=== PATIENT | female | born 1950 | race Caucasian/White ===

== ENCOUNTER 2023-08-18 11:57 | Inpatient (IN) | payer MEDICARE, OTHER, SELFPAY ==
--- NOTE | ~2023-08-18 | US_ITS ---
EXAMINATION: US EXTRACRANIAL CAROTID DUPLEX, BILATERAL CLINICAL INFORMATION: TIA. COMPARISON: None available. TECHNIQUE: Real-time ultrasound and Doppler techniques (integrating B-mode 2-D vascular images, Doppler spectral analysis and color-flow Doppler imaging) were utilized to interrogate the extracranial carotid arteries, the vertebral arteries and proximal subclavian arteries bilaterally. The degree of stenosis is determined by criteria similar to NASCET. FINDINGS: Right Side: Limited visualization of the mid and distal cervical internal carotid artery due to overlying venous catheter bandage. 1. There is mild atherosclerotic plaque seen in the bifurcation/proximal ICA region. 2. The common carotid artery PSV proximally is 106 cm/s and distally 92 cm/s. 3. The proximal internal carotid artery velocities are 136 cm/s systolic and 24 cm/s diastolic. 4. The proximal external carotid artery PSV is 189 cm/s. 5. The vertebral artery shows antegrade flow. 6. The subclavian artery waveforms are triphasic. Left Side: 1. There is moderate atherosclerotic plaque seen in the bifurcation/proximal ICA region. 2. The common carotid artery PSV proximally is 26 cm/s and distally 20 cm/s. Abnormal waveform consistent with distal occlusion. 3. The proximal internal carotid artery is occluded. 4. The proximal external carotid artery is not visualized. 5. The vertebral artery is not visualized. 6. The subclavian artery waveforms are biphasic. US/US carotid duplex BI IMPRESSION: 1. RIGHT: Moderate, hemodynamically significant stenosis of the proximal right internal carotid artery corresponding to a 50-79% stenosis by velocity criteria. 2. LEFT: The cervical internal carotid artery appears occluded. The vertebral artery is is not visualized and could be occluded.
--- NOTE | ~2023-08-18 | MR_ITS ---
MRI OF THE BRAIN WITHOUT IV CONTRAST INDICATION: Left-sided facial droop. COMPARISON: Head CT 08/19/2023. TECHNIQUE: Multiplanar multisequence MR imaging of the brain was obtained without IV contrast. FINDINGS: There is no hydrocephalus, extra-axial surface collection, or herniation. Chronic encephalomalacia and gliosis within the posterior aspect of the right cerebral hemisphere. There is background chronic microangiopathy. Absent left internal carotid artery flow void in keeping with the left internal carotid artery occlusion discussed on the 08/19/2023 carotid ultrasound. There is no acute infarct on diffusion-weighted imaging. There is no intracranial hemorrhage on the gradient recalled echo acquisition. Punctate foci of chronic hemosiderin staining within the frontal lobes. The midline structures are normal. The cerebellar tonsils are normally positioned. The cerebellum and brainstem are normal. The craniocervical junction is normal. Osseous marrow signal intensity is homogenous. Probable high right parietal scalp hematoma that can be clinically correlated. MR/MR head/brain wo con IMPRESSION: - There are no acute intracranial findings. No acute infarcts. - Absent left internal carotid artery flow void in keeping with the left internal carotid artery occlusion discussed on the 08/19/2023 carotid ultrasound. - Chronic encephalomalacia and gliosis within the posterior aspect of the right cerebral hemisphere. There is background chronic microangiopathy. - Probable high right parietal scalp hematoma that can be clinically correlated.
--- NOTE | ~2023-08-18 | CT_ITS ---
EXAMINATION: CT HEAD WITHOUT CONTRAST (STROKE PROTOCOL) CLINICAL INFORMATION: Stroke protocol. Left facial droop COMPARISON: None available. TECHNIQUE: Contiguous axial imaging was performed from the skull base to vertex without intravenous administration of contrast. This CT examination was performed using dose optimization techniques as appropriate, variously including the following: *Automated exposure control *Adjustment of mA and/or kV according to patient size (this includes techniques or standardized protocols for targeted exams where dose is matched to indication/reason for exam; i.e. extremities or head) *Use of iterative reconstruction technique DLP: 788 mGy-cm FINDINGS: Large area of encephalomalacia in the right frontal lobe extending towards its posterior and superior aspect likely due to an old stroke. There is prominence to the sulci and ventricles consistent with involutional change and deep white matter gliosis is observed. Calvarium intact. No intra or extra-axial fluid collection, or hemorrhage, mass, or mass effect. Small calcific densities or osteomas of bone off the outer table anterior vertex incidentally noted. CT/CT head for stroke IMPRESSION: Sequela of an old right-sided infarct. No evidence for an acute hemorrhage or stroke at this time. Results to be telephoned into the ER.
--- NOTE | ~2023-08-18 | CT_ITS ---
EXAMINATION: CT ABDOMEN AND PELVIS WITHOUT CONTRAST CLINICAL INFORMATION: Abdominal pain COMPARISON: None available. TECHNIQUE: Multidetector volumetric imaging was performed from the superior aspect of the liver through the pubic symphysis. Sagittal and coronal reformatted images were obtained on the technologist's workstation. This CT examination was performed using dose optimization techniques as appropriate, variously including the following: *Automated exposure control *Adjustment of mA and/or kV according to patient size (this includes techniques or standardized protocols for targeted exams where dose is matched to indication/reason for exam; i.e. extremities or head) *Use of iterative reconstruction technique DLP: 345 mGy-cm FINDINGS: LUNG BASES: The visualized lung bases are unremarkable. Heart size is enlarged. No pericardial effusion. Coronary calcifications are present. LIVER, GALLBLADDER, AND BILIARY TREE: The liver is normal in size, shape, and attenuation. No focal hepatic lesion or biliary ductal dilatation is present. Status post cholecystectomy PANCREAS: Unremarkable. SPLEEN: Spleens enlarged measuring 14.5 cm AP. ADRENAL GLANDS: Unremarkable. KIDNEYS AND URETERS: Kidneys are atrophic. Exophytic cyst lower pole right kidney measuring 4.7 cm. Hyperdense renal cyst lower pole right kidney measuring 6 mm. Exophytic cyst upper pole right kidney measuring 4 cm. Exophytic cyst upper pole left kidney measuring 4.6 cm. No renal calculus. No hydronephrosis. No hydroureter. BLADDER: Unremarkable. GASTROINTESTINAL TRACT: There are numerous diverticula of the sigmoid colon. There is focal bowel wall thickening of the mid distal sigmoid colon with surrounding edema in the colonic fat. Findings consistent with diverticulitis. No perforation or abscess. No bowel obstruction. Moderate volume of stool in the colon. The appendix is nonvisualized . The small bowel loops are unremarkable. The stomach is normal. There is no hiatal hernia. ABDOMINAL WALL: Surgical mesh at the anterior abdominal wall. No evidence of recurrent hernia. LYMPH NODES: Normal. VASCULAR: There are extensive vascular calcifications throughout the abdomen and pelvis. There is an aneurysm of the descending abdominal aorta. This extends from the renal vascular pedicle to the aortic bifurcation. This has a transverse dimension of 4.9 cm. Eccentric calcification along the left side of the aneurysm likely from chronic dissection. No evidence of retroperitoneal hematoma. There is a vascular stent in the left common iliac artery. Right iliac arteries appear stenotic and densely calcified. There is a graft from the left femoral artery to the right femoral artery. PELVIC VISCERA: Unremarkable. OSSEOUS STRUCTURES: Status post orthopedic screw and intramedullary juan in the right proximal femur. Multilevel degenerative spondylosis spine. Levoscoliosis of mid lumbar spine. CT/CT abdomen pelvis wo IV con IMPRESSION: 1. Diverticulitis of the sigmoid colon. 2. 4.9 cm abdominal aortic aneurysm. Based on published guidelines in J Am Parth Radiol 2013; 10(10):789-794 and J Vasc Surg. 2018; 67:2-77, the recommendation for an abdominal aortic aneurysm with diameter 4.5-5.4 cm is vascular consultation and subsequent follow-up every 6 months. 3. Status post cholecystectomy. 4. Surgical mesh anterior abdominal wall. No recurrent hernia. 5. Atrophic kidneys. Bilateral renal cysts. No follow-up imaging is recommended for simple renal cyst. 6. Splenomegaly. Fleischner guidelines were followed.
--- NOTE | ~2023-08-18 | XR_ITS ---
EXAMINATION: XR CHEST CLINICAL INFORMATION: Pre-MRI, rule out implant COMPARISON: None available. TECHNIQUE: AP upright portable view of the chest was obtained. 12:15 PM FINDINGS: The heart is enlarged. The patient is status post median sternotomy with valve replacement. There is marked calcification of the thoracic aorta indicative of atherosclerotic disease. There is slight streaky density in the retrocardiac portion of the left lung which likely represents atelectasis, less compressed likely pneumonia. Increased interstitial markings. No gross pleural effusion. Multiple surgical clips are seen in the right axilla. 3 metallic anchors are seen in the right humeral head. There is marked thoracolumbar scoliosis. Arterial mesh graft is seen in the left upper quadrant. Surgical clips in the right upper quadrant are consistent with prior cholecystectomy. XR/XR chest 1V IMPRESSION: 1. Cardiomegaly. 2. Status post median sternotomy with valve replacement. 3. Left basilar atelectasis, less compressed likely pneumonia.
--- NOTE | ~2023-08-18 | CT_ITS ---
EXAMINATION: CT HEAD WITHOUT CONTRAST CLINICAL INFORMATION: Worsening decreased level of consciousness. COMPARISON: MRI of August 21, [address] of August 19, 2023. TECHNIQUE: Contiguous axial imaging was performed from the skull base to vertex without intravenous administration of contrast. This CT examination was performed using dose optimization techniques as appropriate, variously including the following: *Automated exposure control *Adjustment of mA and/or kV according to patient size (this includes techniques or standardized protocols for targeted exams where dose is matched to indication/reason for exam; i.e. extremities or head) *Use of iterative reconstruction technique DLP: 720 mGy-cm FINDINGS: No acute intracranial hemorrhage is identified. There is some prominence of ventricles, sulci, and cisterns consistent with atrophic change. No significant abnormal extra-axial fluid collection is seen. No significant mass effect is seen. There is again noted to be a large region of encephalomalacia involving the right frontal and anterior aspect of the parietal lobe from previous ischemic event. No evidence of acute infarct is appreciated on this noncontrasted CT scan. There is stable mild periventricular white matter low density consistent with microangiopathy. There is soft tissue prominence about the right frontal region consistent with scalp hematoma. Visualized paranasal sinuses and mastoid air cells unremarkable. CT/CT head/brain wo IV con IMPRESSION: No acute intracranial pathology. 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
[2023-08-18 12:12] VITALS: BP 130/72; PULSE 62; O2SAT 95
[2023-08-18 12:36] VITALS: BP 127/67; PULSE 67; RESP 16; TEMP 36.3; O2SAT 98; BMI 19.5
--- NOTE | 2023-08-18 13:46 | ECG_ITS ---
Test Reason : CHEST PAIN Blood Pressure : / mmHG Vent. Rate : 068 BPM Atrial Rate : 156 BPM P-R Int : 000 ms QRS Dur : 110 ms QT Int : 462 ms P-R-T Axes : 000 -18 179 degrees QTc Int : 491 ms Atrial fibrillation Left ventricular hypertrophy with repolarization abnormality ( [place] product , [place]hilt-[place] ) Cannot rule out Septal infarct , age undetermined Abnormal ECG No previous ECGs available Referred By: Melo Jefferson Electronically Signed By:VIOLET CARDOSO
--- NOTE | 2023-08-18 13:46 | ED.GENADULT ---
HPI - General Adult General Chief complaint: Abdominal Pain Stated complaint: DIARRHEA,MISSED DIALYSIS TODAY PER EMS Time Seen by Provider: 08/18/23 13:38 Source: patient Mode of arrival: ambulatory Limitations: no limitations History of Present Illness HPI narrative: THIS IS 72 YEARS OLD FEMALE WITH CHRONIC RENAL FAILURE ON HEMODIALYSIS Friday PRESENTED TO THE EMERGENCY DEPARTMENT WITH A CHIEF COMPLAINT OF DIARRHEA SINCE FRIDAY. DENIES ANY FEVER CHILLS VOMITING. Onset (ago): day(s) (2) Radiation: non-radiation Severity: moderate Pain Consistency: constant Relieving factors: none Exacerbating factors: none Related Data Allergies Allergy/AdvReac Type Severity Reaction Status Date / Time No Known Allergies Allergy Verified 08/18/23 12:38 Review of Systems Constitutional: Constitutional: Reports no additional constitutional complaints ENT: Reports system reviewed and no additional complaints, except as documented Musculoskeletal: Musculoskeletal: Reports no additional musculoskeletal complaints PMFSH Past Medical History PMFSH Narrative: RENAL FAILURE ON HEMODIALYSIS Social History Social History Smoked in Last 30 Days: No Use of substances other than those prescribed or required for medical reasons: No Advance Directives: No Advance Directives Information Provided: Yes Do you have a plan to hurt others: No Plan Physical Exam ED Vital Signs: Vital Signs - 24 hr 08/18/23 12:36 08/18/23 15:15 Temperature 97.3 F 96.8 F Pulse Rate 67 96 Respiratory Rate 16 14 Blood Pressure 127/67 149/68 H Pulse Oximetry 98 98 Oxygen Delivery Method Room Air Room Air BMI result Body Mass Index 19.5 Const General: cooperative Nutritional Appearance: average body habitus Orientation/consciousness: oriented to time Limitations: no limitations HENMT Head: Yes normal to inspection General nose exam: Normal external nose present Face and sinus: Yes normal facial exam Mouth: Normal oral and palatal mucosa present Neck Neck: Yes normal visual inspection and Yes full ROM Chest Chest palpation & inspection: normal inspection of the chest Resp Effort & Inspection: normal respiratory effort Auscultation: clear to auscultation bilaterally Cardio Jugular venous distension: no JVD Rate: regular rate Rhythm: regular rhythm GI Inspection: Yes normal to inspection Palpation (GI): Soft to palpation Percussion: No normal to percussion Auscultation: normal bowel sounds Skin General skin exam: no rashes or lesions noted Rashes: no rashes Neuro General: oriented to time Course Reevaluation(s) Reevaluation #1: SPOKE WITH RENAL dR ROQUE Time: 16:09 Reevaluation #2: SPOKE WITH dR HUMPHREY VASCULAR REGARDING AAA Medications Administered Discontinued Medications Generic Name Dose Route Start Last Admin Trade Name Freq PRN Reason Stop Dose Admin Sodium Chloride 1,000 mls @ 500 mls/hr 08/18/23 13:45 08/18/23 14:47 Ns IVCONT 08/18/23 15:44 500 mls/hr .Q2H TROY Administration Procedures EJ/Peripheral Line Neck R: Time Out Performed: Yes Skin Cleansed in Sterile Fashion: Yes Size (gauge): 20 IV Secured and Dressing Applied: Yes Patient Tolerated Procedure: well and no complications Additional Comments: 20 g CATHETER WAS INSERTED IN THE RT EJ LABS OBTAINED GOOD FLOW GOOD FLASH Medical Decision Making Medical Decision Making MDM Narrative: PATIENT PRESENTED TO THE EMERGENCY DEPARTMENT WITH A CHIEF COMPLAINT OF DIARRHEA SHE MISSED THE DIALYSIS, WE GET BLOOD WORK ADMINISTER Differential Diagnosis Differential Diagnoses: The differential diagnosis associated with the presentation includes VIRAL GASTROENTERITIS/COLITIS Admission/Observation Consideration of admission/observation: Escalation of care including admission/observation considered Consult Healthcare Provider Management of the patient was discussed with: Consulting Services Manager RENAL dR ROQUE Lab Data [facility] Lab Attestation statement: I reviewed the patient's lab results. 08/18/23 14:24 08/18/23 14:24 Labs: Lab Results 08/18/23 08/18/23 Range/Units 14:24 14:45 WBC 11.8 H (4.8-10.8) X10*3/uL RBC 3.17 L (4.20-5.50) X10*6/uL Hgb 11.7 L (12.0-16.0) g/dl Hct 36.2 L (37.0-47.0) % MCV 114.2 H (80.0-98.0) fL MCH 36.9 H (27.0-33.0) pg MCHC 32.3 (31.0-35.0) g/dl RDW 15.9 (11.0-16.0) % Plt Count 191 (160-400) X10*3/uL MPV 10.8 (9.4-12.3) fL Immature Gran % (Auto) 1.2 H (0.0-0.4) % Neut % (Auto) 86.7 H (45-73) % Lymph % (Auto) 6.4 L (20-40) % [place] % (Auto) 4.3 (2-11) % Eos % (Auto) 1.2 (0-4) % Baso % (Auto) 0.2 (0-2) % Lymph # (Auto) 0.8 L (1.2-4.9) X10*3/uL [place] # (Auto) 0.5 (0.1-1.2) X10*3/uL Eos # (Auto) 0.1 (0.0-0.4) X10*3/uL Baso # (Auto) 0.0 (0.0-0.2) X10*3/uL Abs Immat Gran (auto) 0.14 H (0.00-0.03) X10*3/uL Absolute Neuts (auto) 10.3 H (2.0-8.3) x10*3/uL Absolute Nucleated RBC 0.000 (0.0-0.012) X10*3/uL Nucleated RBC % (auto) 0.0 (0.0-0.2) /100WBC Sodium 138 (135-145) mmol/L Potassium 4.3 (3.3-5.1) mmol/L Chloride 102 (96-108) mmol/L Carbon Dioxide 21 L (22-29) mmol/L Anion Gap 19 (12-20) BUN 70 H (9-16) mg/dL Creatinine 5.52 H* (0.5-1.4) mg/dL Estim Creat Clear Calc 7.3 Estimated GFR 8 Random Glucose 91 (60-115) mg/dL Calcium 8.0 L (8.4-10.2) mg/dL Total Bilirubin 0.6 (0.0-1.0) mg/dL AST 15 (5-31) U/L ALT 9 (0-31) U/L Alkaline Phosphatase 96 (39-117) U/L Total Protein 6.5 (6.5-8.0) g/dL Albumin 3.1 L (3.5-5.0) g/dL C. difficile Tox B Gene POSITIVE A* (Negative) Independent Interpretation I performed an independent interpretation of an: EKG Interpretation: EKG SHOWS AFIB WITH SLOW VENTRICULAR RESPONSE 68, I PERSONALLY REVIEWED THE CT SCAN INTERPRETED AAA Radiology Impression Discussion of test interpretation with radiology: I have reviewed the radiologist's reading. Discharge Plan Discharge Clinical Impression: Atrial fibrillation with slow ventricular response, C. difficile colitis Diarrhea Qualifiers: Diarrhea type: unspecified type Qualified Code(s): R19.7 - Diarrhea, unspecified Renal failure, chronic Qualifiers: Chronic kidney disease stage: stage 5 Qualified Code(s): N18.5 - Chronic kidney disease, stage 5 AAA (abdominal aortic aneurysm) without rupture Qualifiers: Abdominal aorta location: unspecified Qualified Code(s): I71.40 - Abdominal aortic aneurysm, without rupture, unspecified Patient Disposition: Admitted As Inpatient Print Language: Slovenian
--- NOTE | 2023-08-18 13:57 | PC.NURSE ---
Patient's daughter Laney phone # [phone], to call with updates
[2023-08-18 14:33] LABS: Basophils Percent Auto 0.2 % (0-2); Eosinophils Absolute Auto 0.1 X10*3/uL (0.0-0.4); Eosinophils Percent Auto 1.2 % (0-4); Hematocrit 36.2 % (37.0-47.0); Hemoglobin 11.7 g/dl (12.0-16.0); Imm Gran Abs Auto 0.14 X10*3/uL (0.00-0.03); Imm Gran Pct Auto 1.2 % (0.0-0.4); Lymphocytes Absolute Auto 0.8 X10*3/uL (1.2-4.9); Lymphocytes Percent Auto 6.4 % (20-40); MANUAL DIFF FLAG NO; Mean Corpuscular HGB Conc 32.3 g/dl (31.0-35.0); Mean Corpuscular Hemoglobin 36.9 pg (27.0-33.0); Mean Platelet Volume 10.8 fL (9.4-12.3); Monocytes Absolute Auto 0.5 X10*3/uL (0.1-1.2); Monocytes Percent Auto 4.3 % (2-11); Neutrophils Absolute Auto 10.3 x10*3/uL (2.0-8.3); Neutrophils Percent Auto 86.7 % (45-73); Platelet Count 191 X10*3/uL (160-400); Red Blood Count 3.17 X10*6/uL (4.20-5.50); Red Cell Distribution Width 15.9 % (11.0-16.0); White Blood Count 11.8 X10*3/uL (4.8-10.8)
[2023-08-18 14:34] LABS: Mean Corpuscular Volume 114.2 fL (80.0-98.0)
[2023-08-18] MEDS: 0.9 % Sodium Chloride 1,000 ML 500 ML IVCONT (14:47)
[2023-08-18 14:56] LABS: Alanine Aminotransferase 9 U/L (0-31); Albumin Level 3.1 g/dL (3.5-5.0); Alkaline Phosphatase 96 U/L (39-117); Anion Gap 19 (12-20); Aspartate Amino Transferase 15 U/L (5-31); Bilirubin Total 0.6 mg/dL (0.0-1.0); Blood Urea Nitrogen 70 mg/dL (9-16); Carbon Dioxide 21 mmol/L (22-29); Chloride 102 mmol/L (96-108); Creatinine Clr Calc Pharmacy 7.3; Estimated Glomerular Filt Rate 8; Glucose Random 91 mg/dL (60-115); Potassium 4.3 mmol/L (3.3-5.1); Sodium 138 mmol/L (135-145); Total Protein 6.5 g/dL (6.5-8.0)
[2023-08-18 15:15] VITALS: BP 149/68; PULSE 96; RESP 14; TEMP 36; O2SAT 98
[2023-08-18 15:55] LABS: CDiff Gene PCR POSITIVE (Negative)
[2023-08-18 16:30] LABS: CDiff Toxin Positive (Negative)
[2023-08-18 16:31] LABS: CDIFF Internal ctrl Dots and bkg OK (V)
--- NOTE | 2023-08-18 16:57 | P.HPHOSP_ITS ---
History of Present Illness Date of Service: 08/18/23 Attending physician on admission: Jayshree Chawla Chief Complaint: diarrhea 72-year-old female with history of hypertension, ESRD on dialysis MWF, anxiety, aortic stenosis, paroxysmal atrial fibrillation anticoagulated with Eliquis, mesenteric artery bypass graft, PE on Eliquis, history of TIA and recent history of C diff 02/2023 with admission to [facility] from 05/26-06/19 for metabolic encephalopathy found to have MRSA bacteremia treated with rifampin which was completed on 07/06 presented to the ED earlier today for evaluation of copious diarrhea ongoing for 3 days. She states that she has been incontinent of very foul smelling diarrhea with associated abdominal pain and nausea. No fevers or chills. No vomiting, melena, hematochezia, urinary symptoms, shortness of breath, lightheadedness, chest pain. She states she was feeling so unwell she missed dialysis this morning. Follows with Dr. Duffy in Nephrology. On arrival, vital signs stable. There is a mild leukocytosis of 11.8. Stable macrocytic anemia with H/H 11.7/36.2%. Renal function 5.52, BUN 70, baseline creatinine around 3.5. Electrolyte levels normal except for CO2 21. GI panel pending but is positive for C diff gene and toxin . CT abdomen/pelvis shows diverticulitis, 4.9 cm abdominal aortic aneurysm among other nonacute findings. In the ED, has been given IV NS. Review of Systems 2 Review of Systems: General: No fevers, malaise, unintentional weight loss HEENT: No blurred vision, diplopia. No sore throat, nasal congestion, rhinorrhea, sinus pain, ear pain Cardiovascular: No chest pain, palpitations, or leg edema Respiratory: No shortness of breath, wheezing, cough GI: +abd pain, +diarrhea, +nausea. No vomiting, constipation, melena, hematochezia : No dysuria, hematuria, increased urinary frequency, decreased urinary output MSK: No myalgia, back pain Neuro: No headaches, weakness, paresthesias Skin: No rashes or lesions [facility] Medical History CVA (cerebral vascular accident) Aortic stenosis History of Clostridioides difficile colitis Coronary artery disease Abdominal aortic aneurysm Peripheral vascular disease ESRD on dialysis Anxiety Atrial fibrillation MRSA bacteremia Surgical History History of aortic valve replacement with bioprosthetic valve Social History Smoked in Last 30 Days: No Use of substances other than those prescribed or required for medical reasons: No Advance Directives: No Advance Directives Information Provided: Yes Do you have a plan to hurt others: No Plan Meds Allergies Allergy/AdvReac Type Severity Reaction Status Date / Time No Known Allergies Allergy Verified 08/18/23 12:38 Active Medications: Current Medications Acetaminophen (Acetaminophen 325 Mg Tablet) 650 mg PO Q6H PRN PRN Reason: Pain, Mild (Pain Scale 1-3) Sodium Chloride (Ns) 1,000 mls @ 75 mls/hr IVCONT .[id number] TROY Ondansetron HCl (Ondansetron Hcl 4 Mg/2 Ml Vial) 4 mg IVPUSH Q8H PRN PRN Reason: Nausea and Vomiting Senna (Sennosides 8.6 Mg Tablet) 17.2 mg PO BEDTIME PRN PRN Reason: Constipation Sodium Chloride (0.9 % Sodium Chloride Flush 3 Ml Syringe) 3 ml IVFLUSH QSHIFT TROY Physical Exam 2 Vital Signs and Narrative: Vital Signs: Last Vital Signs Temp 96.8 F 08/18/23 15:15 Pulse 96 08/18/23 15:15 Resp 14 08/18/23 15:15 BP 149/68 H 08/18/23 15:15 Pulse Ox 98 08/18/23 15:15 O2 Del Method Room Air 08/18/23 15:15 BMI result Body Mass Index 19.5 Constitutional - Awake and Alert, weak appearing, No apparent distress Eyes - PERRLA, EOMI Cardiovascular - S1S2, RRR, No edema Respiratory - Normal lung expansion, Normal respiratory effort, No respiratory distress, CTA bilaterally Gastrointestinal - left lower quadrant tenderness to palpation, ND; +BS; No rebound or guarding Extremities - no calf tenderness bilaterally, no swelling Skin - Warm/Dry Neurological - Alert & oriented x3, CN II-XII in tact, 5/5 strength BUE and BLE Psychological - Appropriate affect Results Labs 08/18/23 14:24 08/18/23 14:24 Labs: Laboratory Results - last 24 hr 08/18/23 08/18/23 14:24 14:45 MCV 114.2 H MCH 36.9 H MCHC 32.3 RDW 15.9 Plt Count 191 MPV 10.8 Immature Gran % (Auto) 1.2 H Neut % (Auto) 86.7 H Lymph % (Auto) 6.4 L [place] % (Auto) 4.3 Eos % (Auto) 1.2 Baso % (Auto) 0.2 Lymph # (Auto) 0.8 L [place] # (Auto) 0.5 Eos # (Auto) 0.1 Baso # (Auto) 0.0 Abs Immat Gran (auto) 0.14 H Absolute Neuts (auto) 10.3 H Absolute Nucleated RBC 0.000 Nucleated RBC % (auto) 0.0 Anion Gap 19 Estim Creat Clear Calc 7.3 Estimated GFR 8 Random Glucose 91 Calcium 8.0 L Total Bilirubin 0.6 AST 15 ALT 9 Alkaline Phosphatase 96 Total Protein 6.5 Albumin 3.1 L C. difficile Tox B Gene POSITIVE A* C. difficile Toxin A&B Positive A* C. difficile Interpret SEE NOTE Imaging Radiologist's Impressions: Impressions Abdomen/Pelvis CT 08/18/23 15:09 IMPRESSION: 1. Diverticulitis of the sigmoid colon. 2. 4.9 cm abdominal aortic aneurysm. Based on published guidelines in J Am Parth Radiol 2013; 10(10):789-794 and J Vasc Surg. 2018; 67:2-77, the recommendation for an abdominal aortic aneurysm with diameter 4.5-5.4 cm is vascular consultation and subsequent follow-up every 6 months. 3. Status post cholecystectomy. 4. Surgical mesh anterior abdominal wall. No recurrent hernia. 5. Atrophic kidneys. Bilateral renal cysts. No follow-up imaging is recommended for simple renal cyst. 6. Splenomegaly. Fleischner guidelines were followed. Assessment and Plan (1) AAA (abdominal aortic aneurysm) without rupture: Qualifiers: Abdominal aorta location: unspecified Qualified Code(s): I71.40 - Abdominal aortic aneurysm, without rupture, unspecified Status: Acute (2) C. difficile colitis: Status: Acute (3) Acute diverticulitis: Status: Acute Plan 72-year-old female with history of hypertension, ESRD on dialysis MWF, anxiety, aortic stenosis, paroxysmal atrial fibrillation anticoagulated with Eliquis, mesenteric artery bypass graft, PE on Eliquis, history of TIA and recent history of C diff 02/2023 with admission to [facility] from 05/26-06/19 for metabolic encephalopathy found to have MRSA bacteremia treated with rifampin which was completed on 07/06 admitted for further management of C diff with acute diverticulitis inpatient with ESRD on dialysis # acute diverticulitis -leukocytosis 11.8. No sepsis -CT abdomen/pelvis shows uncomplicated diverticulitis without perforation or abscess -initiate IV Zosyn (initiated 08/17) -clear liquid diet -follow CBC, cultures #Acute CDIFF colitis -recurrent, initial episode 02/2023 -PO vanco 125mg q6h (initiated 08/17) -clear liquid diet -continue gentle IVF # ESRD on dialysis MWF -miss dialysis as morning. Creatinine 5.52, baseline around 3.9 -nephrology consult. Plan for dialysis tomorrow -follow renal function, electrolytes # AAA -measuring 4.[address] abdomen/pelvis -vascular surgery consult #Paroxysmal atrial fibrilaltion -continue eliquis for ac -continue rate control medications # hypertension -blood pressure reasonably controlled -continue home meds # history of PE -diagnosed 05/2023 -continue Eliquis # general weakness -likely related to C diff colitis/diverticulitis -PT eval DVT prophylaxis-Eliquis Full code Patient requires inpatient stay at least 2 midnights for management of C diff colitis and diverticulitis requiring IV antibiotics, IV fluid resuscitation, and will require inpatient dialysis due to missed sessions with expert consultation Quality Stroke Does the patient have a stroke diagnosis?: No VTE Prior VTE?: Yes VTE Risk Level:: Medical - moderate - high VTE Device Contraindication: Treatment Not Indicated VTE Drug Contraindication: N/A - Med Ordered
[2023-08-18] MEDS: Piperacillin Sodium/Tazobactam 4.5 GM in 0.9 % Sodium Chloride 100 ML IV (17:30)
[2023-08-18] MEDS: 0.9 % Sodium Chloride 1,000 ML 75 ML IVCONT (17:30)
--- NOTE | 2023-08-18 18:31 | PHA.MEDREC ---
Pharmacy Consult ? Medication Reconciliation Pharmacy has completed the medication reconciliation. Patient confirmed medications based on claim history. Reported she is taking gabapentin 3 tabs BID instead of 2 tablets BID. Reports taking oxycodone TID schedule and clonazepam TID scheduled.\ Nabila Angel, PharmD
--- NOTE | 2023-08-18 18:44 | PC.NURSE ---
BC ordered by admitting provider, patient difficult stick, R EJ in place does not draw back, admitting provider request for phleb to come and attempt to draw patient, environmental auditor uzma mcnamara texted.
[2023-08-18] MEDS: vancomycin HCL 125 MG CAPSULE PO (19:19)
--- NOTE | 2023-08-18 19:26 | PC.NURSE ---
Phleb Manolo unable to get BC, admission discharge rn [place] & admitted Kavita made aware, will try for another ED staff member to try to draw
--- NOTE | 2023-08-18 19:42 | MHC.EDTECH ---
@1940 Pt was boosted and repositioned. resting comfortably at this time.
[2023-08-18 20:27] VITALS: BP 155/51; PULSE 59; RESP 16; TEMP 38.1; O2SAT 98
--- NOTE | 2023-08-18 20:27 | MHC.EDTECH ---
At this time patient was found to have been incontinent. Has been cleaned up and bed pads changes, and repositioned
[2023-08-18] MEDS: Acetaminophen 325 MG TABLET 650 MG PO (20:55)
[2023-08-18] MEDS: ondansetron HCL 4 MG/2 ML VIAL IVPUSH (21:02)
--- NOTE | 2023-08-18 22:13 | PC.NURSE ---
Patient cdiff+, intermittently confused, wheelchair bound at baseline, resting quietly on stretcher at this time waiting bed assignment.
--- NOTE | 2023-08-18 22:14 | PC.NURSE ---
Patient has small pencil eraser sized open area on upper coccyx region.
--- NOTE | 2023-08-18 22:28 | PC.NURSE ---
messaged covering admitting provider Fransico RE: ordering home meds, were verified by pharmacy
--- NOTE | 2023-08-18 22:48 | PC.NURSE ---
Spoke to daughter aura, gave an update on patient's status. Patient to go to overflow until bed assigned.
--- NOTE | 2023-08-19 00:04 | PC.NURSE ---
pt brought to overflow from main ed 2300. pt moved into hospital bed; shakir care provided linen changed. pt has small coccyx wound as previously documented; reports 8/10 pain in this area. pt repositioned to L side with pillow under to alleviate pressure/further breakdown. pt denies abd pain/n/v at this time. ivf infusing per jun. pt now resting comfortably nad. bed alarm is on. pt in room with door however door is open with precautions sign in front. call nascimento within reach.
[2023-08-19] MEDS: traMADoL HCL 50 MG TABLET PO (01:17)
[2023-08-19] MEDS: vancomycin HCL 125 MG CAPSULE PO ×5 (01:18→22:13)
[2023-08-19 04:54] LABS: MANUAL DIFF FLAG NO
[2023-08-19 04:56] LABS: Basophils Percent Auto 0.3 % (0-2); Eosinophils Absolute Auto 0.1 X10*3/uL (0.0-0.4); Eosinophils Percent Auto 0.8 % (0-4); Hematocrit 36.6 % (37.0-47.0); Hemoglobin 11.6 g/dl (12.0-16.0); Imm Gran Abs Auto 0.18 X10*3/uL (0.00-0.03); Imm Gran Pct Auto 1.2 % (0.0-0.4); Lymphocytes Absolute Auto 0.6 X10*3/uL (1.2-4.9); Lymphocytes Percent Auto 4.4 % (20-40); Mean Corpuscular HGB Conc 31.7 g/dl (31.0-35.0); Mean Corpuscular Hemoglobin 36.1 pg (27.0-33.0); Mean Platelet Volume 11.4 fL (9.4-12.3); Monocytes Percent Auto 6.8 % (2-11); Neutrophils Absolute Auto 12.5 x10*3/uL (2.0-8.3); Neutrophils Percent Auto 86.5 % (45-73); Platelet Count 198 X10*3/uL (160-400); Red Blood Count 3.21 X10*6/uL (4.20-5.50); White Blood Count 14.5 X10*3/uL (4.8-10.8)
[2023-08-19] MEDS: 0.9 % Sodium Chloride 1,000 ML 75 ML IVCONT ×2 (05:52→20:55)
[2023-08-19] MEDS: Piperacillin Sodium/Tazobactam 4.5 GM in 0.9 % Sodium Chloride 100 ML IV ×2 (05:52→18:21)
[2023-08-19 06:00] VITALS: BP 150/65; PULSE 48; RESP 16; TEMP 38.1; O2SAT 95
[2023-08-19] MEDS: Acetaminophen 325 MG TABLET 650 MG PO ×2 (06:14→17:45)
--- NOTE | 2023-08-19 06:28 | PC.NURSE ---
pt is axox4. vitals as documented Dr. Fall notified. pt given prn tylenol for fever. no bm since arrival to overflow at 2300. pt incontinent of urine. shakir care provided. pt repositioned to R. side. ivf infusing and abx given per jun. nad. call nascimento within reach and bed alarm on.
--- NOTE | 2023-08-19 06:31 | MHC.EDTECH ---
Patient was changed in bed and repositioned to her side.
--- NOTE | 2023-08-19 08:06 | PC.NURSE ---
Addendum entered by Twila Collins RN 08/19/23 09:52: assumed care of patient at 0700* Original Note: Assumed care of pateint at 0800, patient resting comfortably, reports no pain, will continue to monitor.
--- NOTE | 2023-08-19 09:30 | PC.NURSE ---
anders texted Vy from pharmacy to bring hydrea
--- NOTE | 2023-08-19 09:35 | PC.NURSE ---
Hospitalist Cammy and PT at bedside reported to this RN that while they were in room talking with patient she developed a slight facial droop and had trouble finding words. This RN was with patient shortly before this incident and patient took meds whole in pudding and was speaking in full sentences. POC taken 108, notified hospitalist Cammy, patient taken to CT to r/o stroke. This RN went into room when hospitalist and PT reported findings and patient was back to [facility], A&O and speaking in full sentences.
[2023-08-19] MEDS: Cholecalciferol (Vitamin D3) 25 MCG TABLET PO (09:38)
[2023-08-19] MEDS: Cyanocobalamin (Vitamin B-12) 1,000 MCG TABLET 1000 MCG PO (09:38)
[2023-08-19] MEDS: FLUoxetine HCl 20 MG CAPSULE 40 MG PO (09:38)
[2023-08-19] MEDS: Gabapentin 300 MG CAPSULE PO ×2 (09:38→22:10)
[2023-08-19] MEDS: Ascorbic Acid 500 MG TABLET PO (09:38)
[2023-08-19] MEDS: Multivitamin TABLET 1 TAB PO (09:38)
[2023-08-19] MEDS: Omeprazole 20 MG CAPSULE.DR PO (09:38)
[2023-08-19] MEDS: Ferrous Sulfate 324 MG TABLET.DR PO (09:39)
[2023-08-19] MEDS: Apixaban 5 MG TABLET PO ×2 (09:39→22:09)
[2023-08-19] MEDS: Atorvastatin Calcium 80 MG TABLET PO (09:39)
[2023-08-19] MEDS: oxyCODONE HCl Immed Release 5 MG TABLET PO ×3 (09:39→22:10)
[2023-08-19] MEDS: clonazePAM 1 MG TABLET PO ×3 (09:39→22:10)
[2023-08-19] MEDS: Topiramate 25 MG TABLET 50 MG PO ×2 (09:39→22:09)
--- NOTE | 2023-08-19 09:53 | PC.NURSE ---
Patient to CT scan at this time.
[2023-08-19 10:00] LABS: Adenovirus F 40/41 Not Detected (Not Detect.); Astrovirus Not Detected (Not Detect.); Campylobacter Not Detected (Not Detect.); Cryptosporidium Not Detected (Not Detect.); Cyclospora cayetanensis Not Detected (Not Detect.); E. coli EAEC Not Detected (Not Detect.); E. coli EPEC Not Detected (Not Detect.); E. coli ETEC Not Detected (Not Detect.); E. coli STEC Not Detected (Not Detect.); Entamoeba histolytica Not Detected (Not Detect.); Giardia lamblia Not Detected (Not Detect.); Norovirus GI/GII Not Detected (Not Detect.); Plesiomonas shigelloides Not Detected (Not Detect.); Rotavirus A Not Detected (Not Detect.); Salmonella Not Detected (Not Detect.); Sapovirus Not Detected (Not Detect.); Shigella sp./EIEC Not Detected (Not Detect.); Vibrio Not Detected (Not Detect.); Vibrio Cholerae Not Detected (Not Detect.); Yersinia enterocolitica Not Detected (Not Detect.)
[2023-08-19 10:05] LABS: Anion Gap 20 (12-20); Blood Urea Nitrogen 71 mg/dL (9-16); Calcium 7.6 mg/dL (8.4-10.2); Carbon Dioxide 16 mmol/L (22-29); Chloride 105 mmol/L (96-108); Creatinine Clr Calc Pharmacy 7.1; Estimated Glomerular Filt Rate 7; Glucose Random 111 mg/dL (60-115); Potassium 4.1 mmol/L (3.3-5.1); Sodium 137 mmol/L (135-145)
--- NOTE | 2023-08-19 10:27 | PC.NURSE ---
critical creatinine tiger texted to Jayshree Chawla
--- NOTE | 2023-08-19 10:33 | MHC.EDTECH ---
Pt is on a clear liquid diet and ate all of her jello and faroese ice. Small sips of hussain radha. This tech also gave the PT a complete bed bath. Pt was incontinent of urine and BM.
[2023-08-19] MEDS: Hydroxyurea 500 MG CAPSULE PO (10:39)
[2023-08-19 11:08] LABS: C Reactive Protein 8.89 mg/dL (< or = 0.50)
[2023-08-19 11:30] VITALS: BP 149/52; PULSE 58; RESP 18; TEMP 36.6; O2SAT 98
--- NOTE | 2023-08-19 11:32 | PM.CNGS ---
History of Present Illness Consult details Consult date: 08/19/23 Reason for consult: other (AAA) Narrative: 72-year-old female with a history of peripheral vascular disease end-stage renal disease who is dialysis dependent AFib with Eliquis and history of PE presented to the emergency room with diarrhea. She had metabolic encephalopathy and found to have MRSA bacteremia and treated with rifampin. She had copious diarrhea. She he underwent a workup in the emergency room and subsequently had a CT scan which demonstrated a 4.9 cm abdominal aortic aneurysm. She now presents for vascular evaluation. Review of Systems Review of Systems: Yes all other systems are reviewed and are negative Constitutional: Constitutional: Reports no additional constitutional complaints ENT: Reports Normal hearing present Cardiovascular: Cardiovascular: Denies chest pain, Denies chest pain at rest, Denies chest pain with activity and Denies pedal edema Respiratory: Respiratory: Denies cough Gastrointestinal: Gastrointestinal: Denies abdominal pain Musculoskeletal: Musculoskeletal: Denies abnormal gait, Denies muscle cramps and Denies radiating pain into limb Integumentary/Breasts: Skin/Breast: Denies skin ulcer and Denies wounds Neurologic: Reports Normal hearing present and Denies abnormal gait Psychiatric: Psychiatric: Reports no additional psychiatric complaints [facility] Past Medical History Medical History CVA (cerebral vascular accident) Aortic stenosis History of Clostridioides difficile colitis Coronary artery disease Abdominal aortic aneurysm Peripheral vascular disease ESRD on dialysis Anxiety Atrial fibrillation MRSA bacteremia Surgical History Surgical History History of aortic valve replacement with bioprosthetic valve Social History Social History Patient Tobacco Use Status: Former Tobacco user Smoked in Last 30 Days: No Use of substances other than those prescribed or required for medical reasons: No Advance Directives: No Advance Directives Information Provided: Yes Do you have a plan to hurt others: No Plan Nutrition Risks: No Nutritional Risk Meds Allergies Allergy/AdvReac Type Severity Reaction Status Date / Time No Known Allergies Allergy Verified 08/18/23 12:38 Active Medications: Current Medications Acetaminophen (Acetaminophen 325 Mg Tablet) 650 mg PO Q6H PRN PRN Reason: Pain, Mild (Pain Scale 1-3) Last Admin: 08/19/23 06:14 Dose: 650 mg Apixaban (Apixaban 5 Mg Tablet) 5 mg PO BID [facility] Last Admin: 08/19/23 09:39 Dose: 5 mg Ascorbic Acid (Ascorbic Acid 500 Mg Tablet) 500 mg PO DAILY [facility] Last Admin: 08/19/23 09:38 Dose: 500 mg Atorvastatin Calcium (Atorvastatin Calcium 80 Mg Tablet) 80 mg PO DAILY [facility] Last Admin: 08/19/23 09:39 Dose: 80 mg Clonazepam (Clonazepam 1 Mg Tablet) 1 mg PO TID [facility] Last Admin: 08/19/23 09:39 Dose: 1 mg Cyanocobalamin (Cyanocobalamin (Vitamin B-12) 1,000 Mcg Tablet) 1,000 mcg PO DAILY [facility] Last Admin: 08/19/23 09:38 Dose: 1,000 mcg Ezetimibe (Ezetimibe 10 Mg Tablet) 10 mg PO BEDTIME [facility] Ferrous Sulfate (Ferrous Sulfate 324 Mg Tablet.) 324 mg PO DAILY [facility] Last Admin: 08/19/23 09:39 Dose: 324 mg Fluoxetine HCl (Fluoxetine Hcl 20 Mg Capsule) 40 mg PO DAILY [facility] Last Admin: 08/19/23 09:38 Dose: 40 mg Gabapentin (Gabapentin 300 Mg Capsule) 300 mg PO BID [facility] Last Admin: 08/19/23 09:38 Dose: 300 mg Hydroxyurea (Hydroxyurea 500 Mg Capsule) 500 mg PO DAILY [facility] Last Admin: 08/19/23 10:39 Dose: 500 mg Sodium Chloride (Ns) 1,000 mls @ 75 mls/hr IVCONT .[id number] [facility] Last Admin: 08/19/23 05:52 Dose: 75 mls/hr Piperacillin Sod/Tazobactam (Sod 4.5 gm/ Sodium Chloride) 100 mls @ 200 mls/hr IV Q12H [facility] Last Infusion: 08/19/23 09:19 Dose: Infused Multivitamins/Vitamin C (Multivitamin Tablet) 1 tab PO DAILY [facility] Last Admin: 08/19/23 09:38 Dose: 1 tab Omeprazole (Omeprazole 20 Mg Capsule.) 20 mg PO DAILY@0630 [facility] Last Admin: 08/19/23 09:38 Dose: 20 mg Ondansetron HCl (Ondansetron Hcl 4 Mg/2 Ml Vial) 4 mg IVPUSH Q8H PRN PRN Reason: Nausea and Vomiting Last Admin: 08/18/23 21:02 Dose: 4 mg Oxycodone HCl (Oxycodone Hcl Immed Release 5 Mg Tablet) 5 mg PO TID [facility] Last Admin: 08/19/23 09:39 Dose: 5 mg Senna (Sennosides 8.6 Mg Tablet) 17.2 mg PO BEDTIME PRN PRN Reason: Constipation Sodium Chloride (0.9 % Sodium Chloride Flush 3 Ml Syringe) 3 ml IVFLUSH QSHIFT [facility] Last Admin: 08/19/23 07:22 Dose: Not Given Topiramate (Topiramate 25 Mg Tablet) 50 mg PO BID [facility] Last Admin: 08/19/23 09:39 Dose: 50 mg Vancomycin HCl (Vancomycin Hcl 125 Mg Capsule) 125 mg PO Q6H [facility] Last Admin: 08/19/23 05:52 Dose: 125 mg Vitamin D (Cholecalciferol (Vitamin D3) 25 Mcg Tablet) 25 mcg PO DAILY [facility] Last Admin: 08/19/23 09:38 Dose: 25 mcg Zolpidem Tartrate (Zolpidem Tartrate 5 Mg Tablet) 5 mg PO BEDTIME [facility] Home Medications ?Medication ?Instructions ?Recorded ?Confirmed ?Last Taken ?Type apixaban 5 mg tablet (Eliquis) 5 mg PO BID 08/18/23 08/18/23 08/18/23 History ascorbic acid (vitamin C) 500 mg 500 mg PO DAILY 08/18/23 08/18/23 08/18/23 History tablet carvedilol 25 mg tablet 25 mg PO BID 08/18/23 08/18/23 08/18/23 History cholecalciferol (vitamin D3) 25 25 mcg PO DAILY 08/18/23 08/18/23 08/18/23 History mcg (1,000 unit) tablet clonazepam 1 mg tablet 1 mg PO TID 08/18/23 08/18/23 08/18/23 History cyanocobalamin (vitamin B-12) 1,000 mcg PO DAILY 08/18/23 08/18/23 08/18/23 History 1,000 mcg tablet diltiazem HCl 120 mg tablet 120 mg PO DAILY 08/18/23 08/18/23 08/18/23 History ezetimibe 10 mg tablet 10 mg PO BEDTIME 08/18/23 08/18/23 08/17/23 History ferrous sulfate 325 mg (65 mg 325 mg PO DAILY 08/18/23 08/18/23 08/18/23 History iron) tablet,delayed release fluoxetine 40 mg capsule 40 mg PO DAILY 08/18/23 08/18/23 08/18/23 History furosemide 80 mg tablet 80 mg PO DAILY 08/18/23 08/18/23 08/18/23 History gabapentin 100 mg capsule 300 mg PO BID 08/18/23 08/18/23 08/18/23 History hydroxyurea 500 mg capsule 500 mg PO DAILY 08/18/23 08/18/23 08/18/23 History multivitamin 1 tab PO DAILY 08/18/23 08/18/23 08/18/23 History oxycodone 5 mg tablet 5 mg PO TID 08/18/23 08/18/23 08/18/23 History pantoprazole 40 mg tablet,delayed 40 mg PO DAILY 08/18/23 08/18/23 08/18/23 History release rosuvastatin 20 mg tablet 20 mg PO DAILY 08/18/23 08/18/23 08/18/23 History topiramate 50 mg tablet 50 mg PO BID 08/18/23 08/18/23 08/18/23 History zolpidem 5 mg tablet 5 mg PO BEDTIME 08/18/23 08/18/23 08/17/23 History Physical Exam Vital Signs: Vital Signs: Last Vital Signs Temp 100.5 F H 08/19/23 06:00 Pulse 48 L 08/19/23 06:00 Resp 16 08/19/23 06:00 BP 150/65 H 08/19/23 06:00 Pulse Ox 95 08/19/23 06:00 O2 Del Method Room Air 08/19/23 06:00 BMI result Body Mass Index 19.5 Const: General: cooperative, healthy appearing and comfortable Orientation/consciousness: oriented to person, oriented to place and oriented to time HEENT: Head: Yes normal to inspection Neck: Neck: Yes normal visual inspection Carotids: no bruits Chest: Chest palpation & inspection: normal inspection of the chest Resp: Effort & Inspection: normal respiratory effort and able to speak in complete sentences Auscultation: clear to auscultation bilaterally, no crackles, no rales, no rhonchi and no wheezes Cardio: Rate: regular rate Rhythm: regular rhythm Heart sounds: S1 normal heart sound present and S2 normal heart sound present Bruits: no carotid bruits Peripheral pulses: Peripheral pulses 2+ throughout GI: Inspection: Yes normal to inspection Skin: Wounds: no wounds Hair: normal Neuro: General: oriented to person, oriented to place and oriented to time Cranial nerves: Yes CN's II-XII intact bilaterally and Yes Normal hearing present Cognition (Neuro): normal cognition Motor exam (neuro): 5/5 motor strength present throughout Extrem: Other: venous exam: No significant superficial varicosities or spider telangiectasias, minimal edema General: No clubbing, No cyanosis and No edema Psych: Appearance: grossly normal Mental Status: mental status grossly normal Speech and movement: Normal speech and movement present Results Labs 08/19/23 04:42 08/19/23 09:38 Labs: Abnormal lab results 08/18/23 08/18/23 08/19/23 Range/Units 14:24 14:45 04:42 WBC 11.8 H 14.5 H (4.8-10.8) X10*3/uL RBC 3.17 L 3.21 L (4.20-5.50) X10*6/uL Hgb 11.7 L 11.6 L (12.0-16.0) g/dl Hct 36.2 L 36.6 L (37.0-47.0) % MCV 114.2 H 114.0 H (80.0-98.0) fL MCH 36.9 H 36.1 H (27.0-33.0) pg Immature Gran % (Auto) 1.2 H 1.2 H (0.0-0.4) % Neut % (Auto) 86.7 H 86.5 H (45-73) % Lymph % (Auto) 6.4 L 4.4 L (20-40) % Lymph # (Auto) 0.8 L 0.6 L (1.2-4.9) X10*3/uL Abs Immat Gran (auto) 0.14 H 0.18 H (0.00-0.03) X10*3/uL Absolute Neuts (auto) 10.3 H 12.5 H (2.0-8.3) x10*3/uL Carbon Dioxide 21 L (22-29) mmol/L BUN 70 H (9-16) mg/dL Creatinine 5.52 H* (0.5-1.4) mg/dL Calcium 8.0 L (8.4-10.2) mg/dL C-Reactive Protein (< or = 0.50) mg/dL Albumin 3.1 L (3.5-5.0) g/dL C. difficile Tox B Gene POSITIVE A* (Negative) C. difficile Toxin A&B Positive A* (Negative) 08/19/23 Range/Units 09:38 WBC (4.8-10.8) X10*3/uL RBC (4.20-5.50) X10*6/uL Hgb (12.0-16.0) g/dl Hct (37.0-47.0) % MCV (80.0-98.0) fL MCH (27.0-33.0) pg Immature Gran % (Auto) (0.0-0.4) % Neut % (Auto) (45-73) % Lymph % (Auto) (20-40) % Lymph # (Auto) (1.2-4.9) X10*3/uL Abs Immat Gran (auto) (0.00-0.03) X10*3/uL Absolute Neuts (auto) (2.0-8.3) x10*3/uL Carbon Dioxide 16 L (22-29) mmol/L BUN 71 H (9-16) mg/dL Creatinine 5.76 H* (0.5-1.4) mg/dL Calcium 7.6 L (8.4-10.2) mg/dL C-Reactive Protein 8.89 H (< or = 0.50) mg/dL Albumin (3.5-5.0) g/dL C. difficile Tox B Gene (Negative) C. difficile Toxin A&B (Negative) Short CBC 08/18/23 08/19/23 Range/Units 14:24 04:42 WBC 11.8 H 14.5 H (4.8-10.8) X10*3/uL Hgb 11.7 L 11.6 L (12.0-16.0) g/dl Hct 36.2 L 36.6 L (37.0-47.0) % Plt Count 191 198 (160-400) X10*3/uL BMP 08/18/23 08/19/23 14:24 09:38 Sodium 138 137 Potassium 4.3 4.1 Chloride 102 105 Carbon Dioxide 21 L 16 L BUN 70 H 71 H Creatinine 5.52 H* 5.76 H* Calcium 8.0 L 7.6 L Liver Function 08/18/23 Range/Units 14:24 Total Bilirubin 0.6 (0.0-1.0) mg/dL AST 15 (5-31) U/L ALT 9 (0-31) U/L Alkaline Phosphatase 96 (39-117) U/L Albumin 3.1 L (3.5-5.0) g/dL All other labs normal. Imaging Additional studies: CT scan dated 08/18/2023 with 4.9 cm abdominal aortic aneurysm. Assessment and Plan (1) AAA (abdominal aortic aneurysm) without rupture: Qualifiers: Abdominal aorta location: unspecified Qualified Code(s): I71.40 - Abdominal aortic aneurysm, without rupture, unspecified Status: Acute Plan In short patient has history peripheral vascular disease. It does appear that the patient had a femoral to femoral bypass done by Dr. Garcia at [facility] several years prior. In addition he has an aneurysm which appears to be stable at 4.9 cm with no evidence of rupture. At the current time her aneurysm is stable and no surgical intervention is required. She does have follow-up in routine surveillance performed at [facility]. Would recommend follow-up with them as they did do the original surgery. Thank you for allowing us to assist in her care. If there are any questions or concerns please do not hesitate to contact us Procedures Date of Service Date of Service: 08/19/23
--- NOTE | 2023-08-19 11:43 | PC.NURSE ---
report given to MICHAEL Raygoza
--- NOTE | 2023-08-19 11:43 | PC.NURSE ---
Speech therapist at bedside.
[2023-08-19 12:35] VITALS: BP 134/56; PULSE 62; RESP 14; O2SAT 97
--- NOTE | 2023-08-19 12:35 | PC.NURSE ---
Addendum entered by Marcia Reynolds 08/19/23 12:37: Dr Chawla aware/agreeable Original Note: Assisting/covering RN, pt transferred from overflow to room 19, speech clear and stable vitals. Dialysis called and ready for pt. Pt taken by tech on monitoring and will be placed on telepack in dialysis.
--- NOTE | 2023-08-19 13:01 | P.PNIM_ITS ---
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 endorses watery diarrhea; no abd pain Review of Systems Review of Systems: Yes all other systems are reviewed and are negative Physical Exam 2 Vital Signs: Vital Signs: Last Vital Signs Temp 97.9 F 08/19/23 11:30 Pulse 62 08/19/23 12:35 Resp 14 08/19/23 12:35 BP 134/56 L 08/19/23 12:35 Pulse Ox 97 08/19/23 12:35 O2 Del Method Room Air 08/19/23 12:35 BMI result Body Mass Index 19.5 Gen: in no acute distress HEENT: sclera anicteric, moist mucus membranes Neck: supple Lungs: clear to auscultation bilaterally Heart: regular rate and rhythm, no murmurs Abd: soft, non-tender, non-distended Ext: no edema Skin: warm/well-perfused Neuro: alert and oriented x3, mild flattening of L nasolabial fold, able to repeat sentences, no pronator drift, no focal leg or arm weakness Psych: appropriate affect Objective Data Active Medications Acetaminophen (Acetaminophen 325 Mg Tablet) 650 mg PO Q6H PRN PRN Reason: Pain, Mild (Pain Scale 1-3) Last Admin: 08/19/23 06:14 Dose: 650 mg Documented By: KENIA Apixaban (Apixaban 5 Mg Tablet) 5 mg PO BID [facility] Last Admin: 08/19/23 09:39 Dose: 5 mg Documented By: KATHRYN Ascorbic Acid (Ascorbic Acid 500 Mg Tablet) 500 mg PO DAILY [facility] Last Admin: 08/19/23 09:38 Dose: 500 mg Documented By: KATHRYN Atorvastatin Calcium (Atorvastatin Calcium 80 Mg Tablet) 80 mg PO DAILY [facility] Last Admin: 08/19/23 09:39 Dose: 80 mg Documented By: KATHRYN Clonazepam (Clonazepam 1 Mg Tablet) 1 mg PO TID [facility] Last Admin: 08/19/23 09:39 Dose: 1 mg Documented By: KATHRYN Cyanocobalamin (Cyanocobalamin (Vitamin B-12) 1,000 Mcg Tablet) 1,000 mcg PO DAILY [facility] Last Admin: 08/19/23 09:38 Dose: 1,000 mcg Documented By: KATHRYN Ezetimibe (Ezetimibe 10 Mg Tablet) 10 mg PO BEDTIME [facility] Ferrous Sulfate (Ferrous Sulfate 324 Mg Tablet.) 324 mg PO DAILY [facility] Last Admin: 08/19/23 09:39 Dose: 324 mg Documented By: KATHRYN Fluoxetine HCl (Fluoxetine Hcl 20 Mg Capsule) 40 mg PO DAILY [facility] Last Admin: 08/19/23 09:38 Dose: 40 mg Documented By: KATHRYN Gabapentin (Gabapentin 300 Mg Capsule) 300 mg PO BID [facility] Last Admin: 08/19/23 09:38 Dose: 300 mg Documented By: KATHRYN Hydroxyurea (Hydroxyurea 500 Mg Capsule) 500 mg PO DAILY [facility] Last Admin: 08/19/23 10:39 Dose: 500 mg Documented By: KATHRYN Sodium Chloride (Ns) 1,000 mls @ 75 mls/hr IVCONT .[id number] [facility] Last Admin: 08/19/23 05:52 Dose: 75 mls/hr Documented By: KENIA Piperacillin Sod/Tazobactam (Sod 4.5 gm/ Sodium Chloride) 100 mls @ 200 mls/hr IV Q12H [facility] Last Infusion: 08/19/23 09:19 Dose: Infused Documented By: GEETHA Multivitamins/Vitamin C (Multivitamin Tablet) 1 tab PO DAILY [facility] Last Admin: 08/19/23 09:38 Dose: 1 tab Documented By: KATHRYN Omeprazole (Omeprazole 20 Mg Capsule.) 20 mg PO DAILY@0630 [facility] Last Admin: 08/19/23 09:38 Dose: 20 mg Documented By: KATHRYN Ondansetron HCl (Ondansetron Hcl 4 Mg/2 Ml Vial) 4 mg IVPUSH Q8H PRN PRN Reason: Nausea and Vomiting Last Admin: 08/18/23 21:02 Dose: 4 mg Documented By: DEONTE Oxycodone HCl (Oxycodone Hcl Immed Release 5 Mg Tablet) 5 mg PO TID [facility] Last Admin: 08/19/23 09:39 Dose: 5 mg Documented By: KATHRYN Senna (Sennosides 8.6 Mg Tablet) 17.2 mg PO BEDTIME PRN PRN Reason: Constipation Sodium Chloride (0.9 % Sodium Chloride Flush 3 Ml Syringe) 3 ml IVFLUSH QSHIFT [facility] Last Admin: 08/19/23 07:22 Dose: Not Given Documented By: KATHRYN Non-Admin Reason: IV Running Topiramate (Topiramate 25 Mg Tablet) 50 mg PO BID [facility] Last Admin: 08/19/23 09:39 Dose: 50 mg Documented By: KATHRYN Vancomycin HCl (Vancomycin Hcl 125 Mg Capsule) 125 mg PO Q6H [facility] Last Admin: 08/19/23 11:55 Dose: 125 mg Documented By: KATHRYN Vitamin D (Cholecalciferol (Vitamin D3) 25 Mcg Tablet) 25 mcg PO DAILY [facility] Last Admin: 08/19/23 09:38 Dose: 25 mcg Documented By: KATHRYN Zolpidem Tartrate (Zolpidem Tartrate 5 Mg Tablet) 5 mg PO BEDTIME [facility] Labs 08/19/23 04:42 08/19/23 09:38 Labs: Laboratory Results - last 24 hr 08/18/23 08/18/23 08/18/23 14:24 14:45 14:46 MCV 114.2 H MCH 36.9 H MCHC 32.3 RDW 15.9 Plt Count 191 MPV 10.8 Immature Gran % (Auto) 1.2 H Neut % (Auto) 86.7 H Lymph % (Auto) 6.4 L [place] % (Auto) 4.3 Eos % (Auto) 1.2 Baso % (Auto) 0.2 Lymph # (Auto) 0.8 L [place] # (Auto) 0.5 Eos # (Auto) 0.1 Baso # (Auto) 0.0 Abs Immat Gran (auto) 0.14 H Absolute Neuts (auto) 10.3 H Absolute Nucleated RBC 0.000 Nucleated RBC % (auto) 0.0 Smear Path Review SEE NOTE Anion Gap 19 Estim Creat Clear Calc 7.3 Estimated GFR 8 Random Glucose 91 Calcium 8.0 L Total Bilirubin 0.6 AST 15 ALT 9 Alkaline Phosphatase 96 C-Reactive Protein Total Protein 6.5 Albumin 3.1 L Stl C. cayetanensis PCR Not Detected Stool Rotavirus A PCR Not Detected Stl Adenov F 40/41 PCR Not Detected Stool Astrovirus (PCR) Not Detected Stool Campylobacter PCR Not Detected Stool Cryptosporidium PCR Not Detected Stl Sh Tox Pr E STEC PCR Not Detected Stool E coli O157 PCR Not applicable Stl Enterotoxigenic E PCR Not Detected Stool EPEC (PCR) Not Detected Stool EAEC (PCR) Not Detected Stl E. histolytica PCR Not Detected Stool Giardia Lamblia PCR Not Detected Stl P. shigelloides PCR Not Detected Stool Salmonella PCR Not Detected Stool Sapovirus (PCR) Not Detected Stl Shigella/EIEC PCR Not Detected St Y.enterocolitica PCR Not Detected Stool Vibrio (PCR) Not Detected Stl Vibrio cholerae PCR Not Detected Stl Norovirus GI/GII PCR Not Detected C. difficile Tox B Gene POSITIVE A* C. difficile Toxin A&B Positive A* C. difficile Interpret SEE NOTE 08/19/23 08/19/23 04:42 09:38 MCV 114.0 H MCH 36.1 H MCHC 31.7 RDW 16.0 Plt Count 198 MPV 11.4 Immature Gran % (Auto) 1.2 H Neut % (Auto) 86.5 H Lymph % (Auto) 4.4 L [place] % (Auto) 6.8 Eos % (Auto) 0.8 Baso % (Auto) 0.3 Lymph # (Auto) 0.6 L [place] # (Auto) 1.0 Eos # (Auto) 0.1 Baso # (Auto) 0.0 Abs Immat Gran (auto) 0.18 H Absolute Neuts (auto) 12.5 H Absolute Nucleated RBC 0.000 Nucleated RBC % (auto) 0.0 Smear Path Review Anion Gap 20 Estim Creat Clear Calc 7.1 Estimated GFR 7 Random Glucose 111 Calcium 7.6 L Total Bilirubin AST ALT Alkaline Phosphatase C-Reactive Protein 8.89 H Total Protein Albumin Stl C. cayetanensis PCR Stool Rotavirus A PCR Stl Adenov F 40/41 PCR Stool Astrovirus (PCR) Stool Campylobacter PCR Stool Cryptosporidium PCR Stl Sh Tox Pr E STEC PCR Stool E coli O157 PCR Stl Enterotoxigenic E PCR Stool EPEC (PCR) Stool EAEC (PCR) Stl E. histolytica PCR Stool Giardia Lamblia PCR Stl P. shigelloides PCR Stool Salmonella PCR Stool Sapovirus (PCR) Stl Shigella/EIEC PCR St Y.enterocolitica PCR Stool Vibrio (PCR) Stl Vibrio cholerae PCR Stl Norovirus GI/GII PCR C. difficile Tox B Gene C. difficile Toxin A&B C. difficile Interpret Assessment and Plan (1) Acute diverticulitis: Status: Acute (2) AAA (abdominal aortic aneurysm) without rupture: Status: Acute (3) C. difficile colitis: Status: Acute Assessment and Plan: d2 72yo F with HTN, ESRD on HD MWF, aortic stenosis, pAF on apixaban, hx fem/fem bypass, hx PE on apixaban, hx TIA, recent Cdiff 03/13, recent admission to [facility] 05/26-06/19 for MRSA bacteremia presenting with recurrent Cdiff diarrhea with diverticulitis and having missed 1 dose of HD concern for TIA/CVA TIA/CVA - not tPA candidate due to apixaban. carotid US, cardiac monitoring, TTE. Neuro consult. continue apixaban. 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 acute diverticultiis without preforation or abscess - pip/foster 08/17- Cdiff colitis, recurrent - PO vanco 08/17-, ID consult ESRD on HD MWF, missed HD M - Nephrology consult, plan HD today pAF - continue apixaban - held metoprolol + diltiazem for bradcardia HTN - held metoprolol + diltiazem as above hx PE - apixaban as above AAA, 4.9cm diameter - outpt surveillance per Vasc Surg HLD - ezetimibe, atorvastatin mood disorder - fluoxetine, clonazepam VTE ppx - apixaban dispo - PT eval In my clinical judgment, the patient requires continued inpatient hospitalization for the following reasons: IV ABX, TIA workup Total time managing care of this patient today: 50 minutes. Quality Stroke Does the patient have a stroke diagnosis?: No VTE Prior VTE?: Yes VTE Risk Level:: Medical - moderate - high VTE Device Contraindication: Treatment Not Indicated VTE Drug Contraindication: N/A - Med Ordered
--- NOTE | 2023-08-19 13:21 | MHC.SP.ADU ---
Referring provider: Jayshree Chawla MD Reason for Referral: Acute onset speech difficulty- intermittent Type of Treatment: 72232 Evaluation Speech Sound Production WITH Language Date of Plan of Treatment: 08/19/23 Onset of Symptoms/Illness: 08/19/23 Date Treatment Started: 08/19/23 Medical Diagnosis: AAA without rupture, c.diff colitis, acute diverticulitis Primary Speech Language Diagnosis: R47.01 Aphasia Secondary Speech Language Diagnosis: History Patient is admitted for further management of c.diff w/ acute diverticulitis and ESRD on dialysis. When visited by hospitalist and PT, patient developed slight facial droop and exhibited difficulty finding words. She was taken to CT to r/o stroke, Head CT noted, Sequela of an old right-sided infarct. No evidence for an acute hemorrhage or stroke at this time. Patient does have hx of prior CVA. Medical History: Other: Medical History CVA (cerebral vascular accident) Aortic stenosis History of Clostridioides difficile colitis Coronary artery disease Abdominal aortic aneurysm Peripheral vascular disease ESRD on dialysis Anxiety Atrial fibrillation MRSA bacteremia Surgical History History of aortic valve replacement with bioprosthetic valve Medication List: Recent Hospitalizations: Respiratory Needs: Room Air Patient Orientation: Person Only Swallowing History: Dysphagia Specific: Risk of Aspiration Comments: Patient is presently on a Clear Liquid Diet. Per RN, patient tolerated jello, latvian ice, and small sips of gingerale. Pre-eval Risk for Aspiration: Neurological Condition Reported Speech, Language, Cognition difficulties: Cognition, Speaking Assessment Speech Production: Aphasic: Nonfluent Slow Clinical Impression: Impaired Observations: Patient's speech is mildly slow, but with clear and precise articulation. Note intermittent episodes of anomia throughout conversation and during confrontational naming. Informal Voice Assessment: Voice Loudness: Normal Voice Nasal Resonance: Normal Voice Oral Resonance: Normal Voice Phonatory-based Quality: Normal Voice Pitch: Normal Tests of Speech & Lang Adults: BNT Clinical Impression: Impaired Observations: Patient was oriented to person only, correctly stating her name, date of , and age. She was unable to provide today's date and stated she did not know where she was, though she knew she was not at home. She was unsure of the situation as well and did not respond to questions inquiring about what brought her to the hospital. Patient followed simple commands and first-then two-step commands (i.e. Point to the door then point to the floor ). She had trouble following through with more complex commands, though they were repeated several times. She responded correctly to yes/no questions about ideational material (i.e. Will a rock sink in water? ) and information verbally presented in paragraphs which were read aloud for her with >50% accuracy. Patient completed automatized sequences (i.e. reciting days of the week, counting to 21) without error. She was also able to repeat single words and whole sentences exactly as they were presented. Patient was administered the Short Form of the [place] Naming Test (BNT) and correctly named 7 out of 15 line drawings. No paraphasias noted, though patient often groped for words. She did benefit from phonemic (i.e. In a desert you see a cac... ) and semantic (i.e. This is a tool the doctor uses to listen to the heart ) cues. Recommendation for Speech Therapy: Inpatient Speech Therapy Frequency/Duration: PRN M-F Patient's articulation was clear and precise. She does present with mild expressive aphasia, marked by difficulty following words, answering yes/no questions, and following complex commands; patient also displayed some confusion (oriented to person only). Per MD, new onset of word finding difficulty and facial droop observed this morning. TUBE BACKER will continue to follow during hospitalization to treat and further evaluate speech, language, and cognition. Recommended Referrals to be Discussed with Primary Care Provider: Neurology New onset aphasia Patient Education: Completed: Yes Patient/Caregiver Education: Described Results of Evaluation Comments/Barriers to Learning: Access Developer Clinican/Clinical Fellow: No Supervisory Statement: N/A Speech Language Pathologist: Leti Coates M.A., CCC-TUBE BACKER
--- NOTE | 2023-08-19 13:28 | MHC.CM.PN ---
pt lives with daughter aura who is her hcp and forest officer [phone] pt also has a sister armand [phone] pt goes to dialysis m wed and fri and is active with [facility] pt will need amb home
--- NOTE | 2023-08-19 16:45 | PC.NURSE ---
patient returned from dialysis, placed back on panel monitor. patient found to be incontinent of large amount of diarrhea. patient cleaned up, new linens and pads, new gown. pillow propped between legs for comfiort. patient noted to have small pressure injury to bottom, covered with pressure dressing. patient is awake and alert, opens eyes to her name, says minimally.
[2023-08-19 17:19] VITALS: BP 194/74; PULSE 53; RESP 15; TEMP 39.3; O2SAT 97
--- NOTE | 2023-08-19 17:45 | P.CNNE_ITS ---
History of Present Illness Data of Consult Service Date: 08/19/23 Primary Care Provider: Bob Fitzgerald DO, MD HPI This is a 72-year-old woman with history of hypertension, end stage CKD on dialysis MWF, anxiety, aortic stenosis, paroxysmal atrial fibrillation anticoagulated with Eliquis, mesenteric artery bypass graft, PE , history of TIA and recent history of C diff 02/2023 with admission to [facility] from 05/26-06/19 for metabolic encephalopathy found to have MRSA bacteremia treated with rifampin which was completed on 07/06 presented to the ED earlier today for evaluation of copious diarrhea ongoing for 3 days. She states that she has been incontinent of very foul smelling diarrhea with associated abdominal pain and nausea. No fevers or chills. No vomiting, melena, hematochezia, urinary symptoms, shortness of breath, lightheadedness, chest pain. She states she was feeling so unwell she missed dialysis this morning. Renal function 5.52, BUN 70, baseline creatinine around 3.5. Electrolyte levels normal except for CO2 21. GI panel pending but is positive for C diff gene and toxin . CT abdomen/pelvis shows diverticulitis, 4.9 cm abdominal aortic aneurysm among other nonacute findings. Review of Systems 2 Review of Systems: General: No fevers, malaise, unintentional weight loss HEENT: No blurred vision, diplopia. No sore throat, nasal congestion, rhinorrhea, sinus pain, ear pain Cardiovascular: No chest pain, palpitations, or leg edema Respiratory: No shortness of breath, wheezing, cough GI: +abd pain, +diarrhea, +nausea. No vomiting, constipation, melena, hematochezia : No dysuria, hematuria, increased urinary frequency, decreased urinary output MSK: No myalgia, back pain Neuro: No headaches, weakness, paresthesias Skin: No rashes or lesions Yes all other systems are reviewed and are negative Constitutional: Constitutional: Reports no additional constitutional complaints ENT: Reports system reviewed and no additional complaints, except as documented and Reports Normal hearing present Cardiovascular: Cardiovascular: Denies chest pain, Denies chest pain at rest, Denies chest pain with activity and Denies pedal edema Respiratory: Respiratory: Denies cough Gastrointestinal: Gastrointestinal: Denies abdominal pain Musculoskeletal: Musculoskeletal: Reports no additional musculoskeletal complaints, Denies abnormal gait, Denies muscle cramps and Denies radiating pain into limb Integumentary/Breasts: Skin/Breast: Denies skin ulcer and Denies wounds Neurologic: Reports Normal hearing present and Denies abnormal gait Psychiatric: Psychiatric: Reports no additional psychiatric complaints [facility] Past Medical History Medical History CVA (cerebral vascular accident) Aortic stenosis History of Clostridioides difficile colitis Coronary artery disease Abdominal aortic aneurysm Peripheral vascular disease ESRD on dialysis Anxiety Atrial fibrillation MRSA bacteremia Surgical History Surgical History History of aortic valve replacement with bioprosthetic valve Social History Social History Patient Tobacco Use Status: Former Tobacco user Smoked in Last 30 Days: No Use of substances other than those prescribed or required for medical reasons: No Advance Directives: No Advance Directives Information Provided: Yes Do you have a plan to hurt others: No Plan Nutrition Risks: No Nutritional Risk service: No Meds Allergies Allergy/AdvReac Type Severity Reaction Status Date / Time No Known Allergies Allergy Verified 08/18/23 12:38 Active Medications: Current Medications Acetaminophen (Acetaminophen 325 Mg Tablet) 650 mg PO Q6H PRN PRN Reason: Pain, Mild (Pain Scale 1-3) Last Admin: 08/19/23 17:45 Dose: 650 mg Apixaban (Apixaban 5 Mg Tablet) 5 mg PO BID [facility] Last Admin: 08/19/23 09:39 Dose: 5 mg Ascorbic Acid (Ascorbic Acid 500 Mg Tablet) 500 mg PO DAILY [facility] Last Admin: 08/19/23 09:38 Dose: 500 mg Atorvastatin Calcium (Atorvastatin Calcium 80 Mg Tablet) 80 mg PO DAILY [facility] Last Admin: 08/19/23 09:39 Dose: 80 mg Clonazepam (Clonazepam 1 Mg Tablet) 1 mg PO TID [facility] Last Admin: 08/19/23 17:45 Dose: 1 mg Cyanocobalamin (Cyanocobalamin (Vitamin B-12) 1,000 Mcg Tablet) 1,000 mcg PO DAILY [facility] Last Admin: 08/19/23 09:38 Dose: 1,000 mcg Ezetimibe (Ezetimibe 10 Mg Tablet) 10 mg PO BEDTIME [facility] Ferrous Sulfate (Ferrous Sulfate 324 Mg Tablet.) 324 mg PO DAILY [facility] Last Admin: 08/19/23 09:39 Dose: 324 mg Fluoxetine HCl (Fluoxetine Hcl 20 Mg Capsule) 40 mg PO DAILY [facility] Last Admin: 08/19/23 09:38 Dose: 40 mg Gabapentin (Gabapentin 300 Mg Capsule) 300 mg PO BID [facility] Last Admin: 08/19/23 09:38 Dose: 300 mg Hydroxyurea (Hydroxyurea 500 Mg Capsule) 500 mg PO DAILY [facility] Last Admin: 08/19/23 10:39 Dose: 500 mg Sodium Chloride (Ns) 1,000 mls @ 75 mls/hr IVCONT .[id number] [facility] Last Admin: 08/19/23 05:52 Dose: 75 mls/hr Piperacillin Sod/Tazobactam (Sod 4.5 gm/ Sodium Chloride) 100 mls @ 200 mls/hr IV Q12H [facility] Last Infusion: 08/19/23 09:19 Dose: Infused Multivitamins/Vitamin C (Multivitamin Tablet) 1 tab PO DAILY [facility] Last Admin: 08/19/23 09:38 Dose: 1 tab Omeprazole (Omeprazole 20 Mg Capsule.) 20 mg PO DAILY@0630 [facility] Last Admin: 08/19/23 09:38 Dose: 20 mg Ondansetron HCl (Ondansetron Hcl 4 Mg/2 Ml Vial) 4 mg IVPUSH Q8H PRN PRN Reason: Nausea and Vomiting Last Admin: 08/18/23 21:02 Dose: 4 mg Oxycodone HCl (Oxycodone Hcl Immed Release 5 Mg Tablet) 5 mg PO TID [facility] Last Admin: 08/19/23 17:45 Dose: 5 mg Senna (Sennosides 8.6 Mg Tablet) 17.2 mg PO BEDTIME PRN PRN Reason: Constipation Sodium Chloride (0.9 % Sodium Chloride Flush 3 Ml Syringe) 3 ml IVFLUSH QSHIFT [facility] Last Admin: 08/19/23 07:22 Dose: Not Given Topiramate (Topiramate 25 Mg Tablet) 50 mg PO BID [facility] Last Admin: 08/19/23 09:39 Dose: 50 mg Vancomycin HCl (Vancomycin Hcl 125 Mg Capsule) 125 mg PO Q6H [facility] Last Admin: 08/19/23 11:55 Dose: 125 mg Vitamin D (Cholecalciferol (Vitamin D3) 25 Mcg Tablet) 25 mcg PO DAILY [facility] Last Admin: 08/19/23 09:38 Dose: 25 mcg Zolpidem Tartrate (Zolpidem Tartrate 5 Mg Tablet) 5 mg PO BEDTIME [facility] Home Medications ?Medication ?Instructions ?Recorded ?Confirmed ?Last Taken ?Type apixaban 5 mg tablet (Eliquis) 5 mg PO BID 08/18/23 08/18/23 08/18/23 History ascorbic acid (vitamin C) 500 mg 500 mg PO DAILY 08/18/23 08/18/23 08/18/23 History tablet carvedilol 25 mg tablet 25 mg PO BID 08/18/23 08/18/23 08/18/23 History cholecalciferol (vitamin D3) 25 25 mcg PO DAILY 08/18/23 08/18/23 08/18/23 History mcg (1,000 unit) tablet clonazepam 1 mg tablet 1 mg PO TID 08/18/23 08/18/23 08/18/23 History cyanocobalamin (vitamin B-12) 1,000 mcg PO DAILY 08/18/23 08/18/23 08/18/23 History 1,000 mcg tablet diltiazem HCl 120 mg tablet 120 mg PO DAILY 08/18/23 08/18/23 08/18/23 History ezetimibe 10 mg tablet 10 mg PO BEDTIME 08/18/23 08/18/23 08/17/23 History ferrous sulfate 325 mg (65 mg 325 mg PO DAILY 08/18/23 08/18/23 08/18/23 History iron) tablet,delayed release fluoxetine 40 mg capsule 40 mg PO DAILY 08/18/23 08/18/23 08/18/23 History furosemide 80 mg tablet 80 mg PO DAILY 08/18/23 08/18/23 08/18/23 History gabapentin 100 mg capsule 300 mg PO BID 08/18/23 08/18/23 08/18/23 History hydroxyurea 500 mg capsule 500 mg PO DAILY 08/18/23 08/18/23 08/18/23 History multivitamin 1 tab PO DAILY 08/18/23 08/18/23 08/18/23 History oxycodone 5 mg tablet 5 mg PO TID 08/18/23 08/18/23 08/18/23 History pantoprazole 40 mg tablet,delayed 40 mg PO DAILY 08/18/23 08/18/23 08/18/23 History release rosuvastatin 20 mg tablet 20 mg PO DAILY 08/18/23 08/18/23 08/18/23 History topiramate 50 mg tablet 50 mg PO BID 08/18/23 08/18/23 08/18/23 History zolpidem 5 mg tablet 5 mg PO BEDTIME 08/18/23 08/18/23 08/17/23 History Physical Exam 2 Vital Signs: Vital Signs: Last Vital Signs Temp 102.7 F H 08/19/23 17:19 Pulse 53 08/19/23 17:19 Resp 15 08/19/23 17:19 BP 194/74 H 08/19/23 17:19 Pulse Ox 97 08/19/23 17:19 O2 Del Method Room Air 08/19/23 17:19 BMI result Body Mass Index 19.5 Const: General: cooperative, healthy appearing and comfortable Nutritional Appearance: average body habitus Limitations: no limitations HEENT: Head: Yes normal to inspection General nose exam: Normal external nose present Face and sinus: Yes normal facial exam Mouth: Normal oral and palatal mucosa present Neck: Neck: Yes normal visual inspection and Yes full ROM Carotids: no bruits Chest: Chest palpation & inspection: normal inspection of the chest Resp: Effort & Inspection: normal respiratory effort and able to speak in complete sentences Auscultation: clear to auscultation bilaterally, no crackles, no rales, no rhonchi and no wheezes Cardio: Jugular venous distension: no JVD Rate: regular rate Rhythm: r egular rhythm Heart sounds: S1 normal heart sound present and S2 normal heart sound present Bruits: no carotid bruits Peripheral pulses: Peripheral pulses 2+ throughout GI: Inspection: Yes normal to inspection Palpation (GI): Soft to palpation Percussion: No normal to percussion Auscultation: normal bowel sounds Skin: General skin exam: no rashes or lesions noted Rashes: no rashes W ounds: no wounds Hair: normal Neuro: Other: Lethargic and poorly responsive. Occasionally follows simple commands. Detailed neuro exam not possible. Neck supple. Cranial nerves: Yes CN's II-XII intact bilaterally and Yes Normal hearing present Cognition (Neuro): normal cognition Motor exam (neuro): 5/5 motor strength present throughout Extrem: Other: venous exam: No significant superficial varicosities or spider telangiectasias, minimal edema General: No clubbing, No cyanosis and No edema Psych: Appearance: grossly normal Mental Status: mental status grossly normal Speech and movement: Normal speech and movement present Results Labs 08/19/23 04:42 08/19/23 09:38 Labs: Short CBC 08/19/23 Range/Units 04:42 WBC 14.5 H (4.8-10.8) X10*3/uL Hgb 11.6 L (12.0-16.0) g/dl Hct 36.6 L (37.0-47.0) % Plt Count 198 (160-400) X10*3/uL BMP 08/19/23 09:38 Sodium 137 Potassium 4.1 Chloride 105 Carbon Dioxide 16 L BUN 71 H Creatinine 5.76 H* Calcium 7.6 L Assessment and Plan (1) Acute diverticulitis: Status: Acute Encephalopathy from multiple medical factors. Old right frontal stroke. Ct shows no new findings. Carotid doppler pending Continue anticoagulation with Eliquis. Treatmenrt of C diff and dehydration (2) AAA (abdominal aortic aneurysm) without rupture: Qualifiers: Abdominal aorta location: unspecified Qualified Code(s): I71.40 - Abdominal aortic aneurysm, without rupture, unspecified Status: Acute (3) C. difficile colitis: Status: Acute d2 72yo F with HTN, ESRD on HD MWF, aortic stenosis, pAF on apixaban, hx fem/fem bypass, hx PE on apixaban, hx TIA, recent Cdiff 03/13, recent admission [place] [facility] [place] for MRSA bacteremia presenting with recurrent Cdiff diarrhea with diverticulitis and having missed 1 dose of HD concern for TIA/CVA TIA/CVA - not tPA candidate due to apixaban. carotid US, cardiac monitoring, TTE. Neuro consult. continue apixaban. [employer] evaluation. acute diverticultiis without preforation or abscess - pip/foster 08/17- Cdiff colitis, recurrent - PO vanco 08/17-, ID consult ESRD on HD MWF, missed HD M - Nephrology consult, plan HD today pAF - continue apixaban - held metoprolol + diltiazem for bradcardia HTN - held metoprolol + diltiazem as above hx PE - apixaban as above AAA, 4.9cm diameter - outpt surveillance per Vasc Surg HLD - ezetimibe, atorvastatin mood disorder - fluoxetine, clonazepam VTE ppx - apixaban dispo - PT eval In my clinical judgment, the patient requires continued inpatient hospitalization for the following reasons: IV ABX, TIA workup Procedures Date of Service Date of Service: 08/19/23
[2023-08-19] MEDS: 0.9 % Sodium Chloride Flush 3 ML SYRINGE IVFLUSH (22:09)
[2023-08-19] MEDS: Zolpidem Tartrate 5 MG TABLET PO (22:09)
[2023-08-19] MEDS: Ezetimibe 10 MG TABLET PO (22:09)
[2023-08-19 22:27] VITALS: BMI 19.4
[2023-08-19 23:45] VITALS: BP 181/83; PULSE 64; RESP 18; TEMP 36.6; O2SAT 94
[2023-08-20] VITALS (9 sets, daily range): BP systolic 107–168; BP diastolic 55–86; PULSE 65–98; RESP 16–18; TEMP 36.1–36.7; O2SAT 93–97
--- NOTE | 2023-08-20 00:22 | W.PM.IDCN ---
History of Present Illness Data of Consult Service Date: 08/19/23 Requesting physician: Jayshree Chawla Primary Care Provider: Bob Fitzgerald DO, MD HPI Reason for consult: abdominal discomfort,Cdiff She presents with 6/10 abdominal discomfort as well as diarrhea,watery for four days. She has positive Cdiff on 08/07. CT read as sigmoid diverticulitis as well,now day 2 rx Review of Systems Review of Systems: Yes all other systems are reviewed and are negative PMFSH Past Medical History Medical History CVA (cerebral vascular accident) Aortic stenosis History of Clostridioides difficile colitis Coronary artery disease Abdominal aortic aneurysm Peripheral vascular disease ESRD on dialysis Anxiety Atrial fibrillation MRSA bacteremia Family History Family history: reviewed and not pertinent Surgical History Surgical History History of aortic valve replacement with bioprosthetic valve Social History Social History Patient Tobacco Use Status: Former Tobacco user service: No Meds Allergies Allergy/AdvReac Type Severity Reaction Status Date / Time No Known Allergies Allergy Verified 08/18/23 12:38 Active Medications: Current Medications Acetaminophen (Acetaminophen 325 Mg Tablet) 650 mg PO Q6H PRN PRN Reason: Pain, Mild (Pain Scale 1-3) Last Admin: 08/19/23 17:45 Dose: 650 mg Apixaban (Apixaban 5 Mg Tablet) 5 mg PO BID [facility] [place] Last Admin: 08/19/23 22:09 Dose: 5 mg Ascorbic Acid (Ascorbic Acid 500 Mg Tablet) 500 mg PO DAILY [facility] Last Admin: 08/19/23 09:38 Dose: 500 mg Atorvastatin Calcium (Atorvastatin Calcium 80 Mg Tablet) 80 mg PO DAILY [facility] [place] Last Admin: 08/19/23 09:39 Dose: 80 mg Clonazepam (Clonazepam 1 Mg Tablet) 1 mg PO TID [facility] Last Admin: 08/19/23 22:10 Dose: 1 mg Cyanocobalamin (Cyanocobalamin (Vitamin B-12) 1,000 Mcg Tablet) 1,000 mcg PO DAILY [facility] [place] Last Admin: 08/19/23 09:38 Dose: 1,000 mcg Ezetimibe (Ezetimibe 10 Mg Tablet) 10 mg PO BEDTIME [facility] [place] Last Admin: 08/19/23 22:09 Dose: 10 mg Ferrous Sulfate (Ferrous Sulfate 324 Mg Tablet.) 324 mg PO DAILY [facility] [place] Last Admin: 08/19/23 09:39 Dose: 324 mg Fluoxetine HCl (Fluoxetine Hcl 20 Mg Capsule) 40 mg PO DAILY [facility] [place] Last Admin: 08/19/23 09:38 Dose: 40 mg Gabapentin (Gabapentin 300 Mg Capsule) 300 mg PO BID [facility] [place] Last Admin: 08/19/23 22:10 Dose: 300 mg Hydroxyurea (Hydroxyurea 500 Mg Capsule) 500 mg PO DAILY [facility] [place] Last Admin: 08/19/23 10:39 Dose: 500 mg Sodium Chloride (Ns) 1,000 mls @ 75 mls/hr IVCONT .[id number] [facility] [place] Last Admin: 08/19/23 20:55 Dose: 75 mls/hr Piperacillin Sod/Tazobactam (Sod 4.5 gm/ Sodium Chloride) 100 mls @ 200 mls/hr IV Q12H [facility] [place] Last Infusion: 08/19/23 20:49 Dose: Infused Multivitamins/Vitamin C (Multivitamin Tablet) 1 tab PO DAILY [facility] [place] Last Admin: 08/19/23 09:38 Dose: 1 tab Omeprazole (Omeprazole 20 Mg Capsule.) 20 mg PO DAILY@0630 [facility] [place] Last Admin: 08/19/23 09:38 Dose: 20 mg Ondansetron HCl (Ondansetron Hcl 4 Mg/2 Ml Vial) 4 mg IVPUSH Q8H PRN PRN Reason: Nausea and Vomiting Last Admin: 08/18/23 21:02 Dose: 4 mg Oxycodone HCl (Oxycodone Hcl Immed Release 5 Mg Tablet) 5 mg PO TID [facility] [place] Last Admin: 08/19/23 22:10 Dose: 5 mg Senna (Sennosides 8.6 Mg Tablet) 17.2 mg PO BEDTIME PRN PRN Reason: Constipation Sodium Chloride (0.9 % Sodium Chloride Flush 3 Ml Syringe) 3 ml IVFLUSH QSHIFT [facility] [place] Last Admin: 08/19/23 22:09 Dose: 3 ml Topiramate (Topiramate 25 Mg Tablet) 50 mg PO BID [facility] [place] Last Admin: 08/19/23 22:09 Dose: 50 mg Vancomycin HCl (Vancomycin Hcl 125 Mg Capsule) 125 mg PO Q6H [facility] [place] Last Admin: 08/19/23 22:13 Dose: 125 mg Vitamin D (Cholecalciferol (Vitamin D3) 25 Mcg Tablet) 25 mcg PO DAILY [facility] [place] Last Admin: 08/19/23 09:38 Dose: 25 mcg Zolpidem Tartrate (Zolpidem Tartrate 5 Mg Tablet) 5 mg PO BEDTIME [facility] [place] Last Admin: 08/19/23 22:09 Dose: 5 mg Home Medications ?Medication ?Instructions ?Recorded ?Confirmed ?Last Taken ?Type apixaban 5 mg tablet (Eliquis) 5 mg PO BID 08/18/23 08/18/23 08/18/23 History ascorbic acid (vitamin C) 500 mg 500 mg PO DAILY 08/18/23 08/18/23 08/18/23 History tablet carvedilol 25 mg tablet 25 mg PO BID 08/18/23 08/18/23 08/18/23 History cholecalciferol (vitamin D3) 25 25 mcg PO DAILY 08/18/23 08/18/23 08/18/23 History mcg (1,000 unit) tablet clonazepam 1 mg tablet 1 mg PO TID 08/18/23 08/18/23 08/18/23 History cyanocobalamin (vitamin B-12) 1,000 mcg PO DAILY 08/18/23 08/18/23 08/18/23 History 1,000 mcg tablet diltiazem HCl 120 mg tablet 120 mg PO DAILY 08/18/23 08/18/23 08/18/23 History ezetimibe 10 mg tablet 10 mg PO BEDTIME 08/18/23 08/18/23 08/17/23 History ferrous sulfate 325 mg (65 mg 325 mg PO DAILY 08/18/23 08/18/23 08/18/23 History iron) tablet,delayed release fluoxetine 40 mg capsule 40 mg PO DAILY 08/18/23 08/18/23 08/18/23 History furosemide 80 mg tablet 80 mg PO DAILY 08/18/23 08/18/23 08/18/23 History gabapentin 100 mg capsule 300 mg PO BID 08/18/23 08/18/23 08/18/23 History hydroxyurea 500 mg capsule 500 mg PO DAILY 08/18/23 08/18/23 08/18/23 History multivitamin 1 tab PO DAILY 08/18/23 08/18/23 08/18/23 History oxycodone 5 mg tablet 5 mg PO TID 08/18/23 08/18/23 08/18/23 History pantoprazole 40 mg tablet,delayed 40 mg PO DAILY 08/18/23 08/18/23 08/18/23 History release rosuvastatin 20 mg tablet 20 mg PO DAILY 08/18/23 08/18/23 08/18/23 History topiramate 50 mg tablet 50 mg PO BID 08/18/23 08/18/23 08/18/23 History zolpidem 5 mg tablet 5 mg PO BEDTIME 08/18/23 08/18/23 08/17/23 History Physical Exam Vital Signs: Vital Signs: Last Vital Signs Temp 97.8 F 08/19/23 23:45 Pulse 64 08/19/23 23:45 Resp 18 08/19/23 23:45 BP 181/83 H 08/19/23 23:45 Pulse Ox 94 08/19/23 23:45 O2 Del Method Room Air 08/19/23 23:45 BMI result Body Mass Index 19.4 Const: General: cooperative HEENT: Head: Yes normal to inspection Face and sinus: Yes normal facial exam Mouth: Normal oral and palatal mucosa present Teeth and gingiva: dentition normal Eyes: General: appearance normal, both eyes and all related structures Pupils: Equal, round and reactive pupils present Resp: Effort & Inspection: normal respiratory effort Cardio: Rate: regular rate Rhythm: regular rhythm GI: Palpation (GI): Soft to palpation and nontender : General: Yes no CVA tenderness Back/Spine/Pelvis: Back: no CVA tenderness Skin: General skin exam: no rashes or lesions noted Neuro: Other: somewhat confused Cranial nerves: Yes Equal, round and reactive pupils present Extrem: General: Yes normal to inspection Psych: Appearance: grossly normal Results Labs 08/19/23 04:42 08/19/23 09:38 Labs: Short CBC 08/19/23 Range/Units 04:42 WBC 14.5 H (4.8-10.8) X10*3/uL Hgb 11.6 L (12.0-16.0) g/dl Hct 36.6 L (37.0-47.0) % Plt Count 198 (160-400) X10*3/uL BMP 08/19/23 09:38 Sodium 137 Potassium 4.1 Chloride 105 Carbon Dioxide 16 L BUN 71 H Creatinine 5.76 H* Calcium 7.6 L Microbiology Microbiology Results: Microbiology 08/18/23 19:36 Blood - Venous Blood Culture - Preliminary No growth after 24 hours. 08/18/23 19:36 Blood - Venous Blood Culture - Preliminary No growth after 24 hours. Assessment and Plan (1) Acute diverticulitis: Status: Acute (2) C. 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 125 qid 10 d 125 tid Vancomycin one week 125 bid Vancomycin one week 125 daily one week 125 mg every ,,Friday thereafter and dont stop. ?colonscopy when better.
[2023-08-20 05:40] LABS: Hematocrit 36.3 % (37.0-47.0); Hemoglobin 11.9 g/dl (12.0-16.0); Mean Corpuscular HGB Conc 32.8 g/dl (31.0-35.0); Mean Corpuscular Hemoglobin 37.5 pg (27.0-33.0); Mean Platelet Volume 10.9 fL (9.4-12.3); Platelet Count 178 X10*3/uL (160-400); Red Blood Count 3.17 X10*6/uL (4.20-5.50); Red Cell Distribution Width 15.7 % (11.0-16.0); White Blood Count 15.6 X10*3/uL (4.8-10.8)
[2023-08-20 05:49] LABS: Mean Corpuscular Volume 114.5 fL (80.0-98.0)
[2023-08-20 05:54] LABS: Anion Gap 18 (12-20); Blood Urea Nitrogen 32 mg/dL (9-16); Carbon Dioxide 18 mmol/L (22-29); Chloride 105 mmol/L (96-108); Creatinine Clr Calc Pharmacy 11.2; Estimated Glomerular Filt Rate 13; Glucose Random 95 mg/dL (60-115); Potassium 3.5 mmol/L (3.3-5.1); Sodium 137 mmol/L (135-145)
[2023-08-20] MEDS: Piperacillin Sodium/Tazobactam 4.5 GM in 0.9 % Sodium Chloride 100 ML IV ×2 (06:16→18:26)
[2023-08-20] MEDS: vancomycin HCL 125 MG CAPSULE PO ×3 (06:17→18:33)
[2023-08-20] MEDS: Omeprazole 20 MG CAPSULE.DR PO (06:17)
--- NOTE | 2023-08-20 07:00 | CA_ITS ---
Transthoracic Echocardiogram Patient (Last, First, Middle): Romy Toure, Gender: Female Date of : 1950 Age: 72 Procedure Date: 08/20/2023 Procedure Type: Transthoracic Echocardiogram Location: [facility] [place] Height: 160.02 cm Weight: 49.9 kg BSA: 1.50 m2 Heart Rate: 72 bpm BP: 134 / 56 mmHg Access Clerk: Referring MD: Jayshree Chawla MD Symptoms: TIA Study Quality: Adequate ECG Rhythm: Atrial Fibrillation Conclusions: - The left ventricular systolic function is normal. The calculated ejection fraction is 61% by biplane method. - The left atrium is severely dilated. - There is moderate aortic valve stenosis. Findings Left Ventricle Normal left ventricular cavity size. There is severely increased left ventricular wall thickness. The left ventricular systolic function is normal. The calculated ejection fraction is 61% by biplane method. There is no evidence of regional wall motion abnormalities. Diastolic function is indeterminate on the basis of available data. Right Ventricle Normal right ventricular cavity size. There is mildly decreased right ventricular systolic function. Atria The left atrium is severely dilated. The right atrium is normal in size. Aortic Valve There is severe calcification of the aortic valve. There is moderate aortic valve stenosis. The peak aortic velocity is 2.38 m/s with a calculated peak gradient of 23 mmHg. The mean gradient is 13 mmHg. The aortic valve area is 1.05 cm2. There is mild aortic valve regurgitation. Dimensionless index 0.38. Stroke volume index 34 ml/m2. Mitral Valve There is mild mitral annular calcification. There is trace mitral valve regurgitation. There is no mitral valve stenosis. Pulmonic Valve There is mild pulmonic valve regurgitation. Tricuspid Valve Normal tricuspid valve structure. There is mild tricuspid valve regurgitation. There is no evidence of pulmonary hypertension. Great Vessels The asc aorta is normal in size. Venous The inferior vena cava is normal in size and collapses greater than 50% with inspiration. Pericardium/Pleural There is no evidence of pericardial effusion. Prior Study Comparison No prior study available for comparison. Measurements 2D Linear Measurements IVSd: 1.92 0.6-0.9/0.6-1.0 cm LVIDd: 3.58 3.9-5.3/4.2-5.9 cm LVIDd Index: 2.39 2.4-3.2/2.2-3.1 cm/m2 LVIDs: 2.09 2.0-3.6 cm LVPWd: 1.64 0.7-1.1 cm LA Diam: 4.40 2.7-3.8/3.0-4.0 cm LAIDs Index: 2.93 1.5-2.3 cm/m2 LV Mass: 330.84 67-162/88-224 g LV Mass Index: 220.56 43-95/49-115 g/m2 LVOT Diam: 1.90 3.0+(-)1.3 cm 2D Systolic Function EF 4C: 61.50 >55% EF 2C: 60.70 >55% EF BiP: 61.40 >55% Mitral Valve MV Pk E: 1.16 MV Decel Time: 203.00 E'Lateral: 9.25 E'Medial: 4.68 E/E' Med: 24.80 E/E' Lat: 12.50 PHT: 59.00 MVA PHT: 3.73 Decel [place]: 5.72 Aortic Valve AoV Pk Joe: 2.38 AoV Mn Joe: 1.63 AoV VTI: 0.48 AoV Pk Grad: 23.00 Aov Mn Grad: 13.00 NORA Cont.VTI: 1.05 LVOT LVOT Pk Joe: 0.90 LVOT Mn Joe: 0.53 LVOT VTI: 0.18 LVOT Pk Grad: 3.00 LVOT Mn Grad: 2.00 LVOT Diam: 1.90 LVOT Area: 2.84 Diastolic Function MV Pk E: 1.16 E'Medial: 4.68 E/E' Med: 24.80 E' Laterial: 9.25 E/E' Lat: 12.50 Right Ventricle TAPSE (mm): 17.40 Tricuspid Valve TR Pk Joe: 2.48 TR Pk Grad: 25.00 RA Press: 3.00 RVSP: 28.00 Great Vessels Aorta Sinus of Valsalva: 2.80 2.0-3.5 cm Ao Asc: 3.80 2.1-3.4 cm Pulmonary Valve PV Pk Joe: 0.96 Peak PV Grad: 4.00 Updated in Other Vendor System with Status of Final Richard Chavarria MD electronically signed on 08/20/2023 3:38:58 PM with status of Final
--- NOTE | 2023-08-20 10:26 | HO.PM.IMPN ---
Subjective Subjective Date of Service: 08/20/23 Interval History: in HD now facial droop resolved, no speech difficulties diarrhea improving no abd pain febrile to 102.7 @ 17:19 Review of Systems Review of Systems: Yes all other systems are reviewed and are negative Physical Exam Vital Signs: Vital Signs: Last Vital Signs Temp 97.3 F 08/20/23 08:00 Pulse 83 08/20/23 08:00 Resp 18 08/20/23 08:00 BP 135/70 08/20/23 08:00 Pulse Ox 93 08/20/23 08:00 O2 Del Method Room Air 08/20/23 08:00 BMI result Body Mass Index 19.4 Gen: in no acute distress HEENT: sclera anicteric, moist mucus membranes Neck: supple Lungs: clear to auscultation bilaterally Heart: regular rate and rhythm, no murmurs Abd: soft, non-tender, non-distended Ext: no edema Skin: warm/well-perfused Neuro: alert and oriented x3, no facial droop, no speech difficulty, no pronator drift, no focal leg or arm weakness Psych: appropriate affect Objective Data Active Medications Acetaminophen (Acetaminophen 325 Mg Tablet) 650 mg PO Q6H PRN PRN Reason: Pain, Mild (Pain Scale 1-3) Last Admin: 08/19/23 17:45 Dose: 650 mg Documented By: AALIYAH Apixaban (Apixaban 5 Mg Tablet) 5 mg PO BID [facility] Last Admin: 08/19/23 22:09 Dose: 5 mg Documented By: NELI Ascorbic Acid (Ascorbic Acid 500 Mg Tablet) 500 mg PO DAILY [facility] Last Admin: 08/19/23 09:38 Dose: 500 mg Documented By: KATHRYN Atorvastatin Calcium (Atorvastatin Calcium 80 Mg Tablet) 80 mg PO DAILY [facility] Last Admin: 08/19/23 09:39 Dose: 80 mg Documented By: KATHRYN Carvedilol (Carvedilol 25 Mg Tablet) 25 mg PO BID [facility]; Protocol Clonazepam (Clonazepam 1 Mg Tablet) 1 mg PO TID [facility] Last Admin: 08/19/23 22:10 Dose: 1 mg Documented By: NELI Cyanocobalamin (Cyanocobalamin (Vitamin B-12) 1,000 Mcg Tablet) 1,000 mcg PO DAILY [facility] Last Admin: 08/19/23 09:38 Dose: 1,000 mcg Documented By: KATHRYN Diltiazem HCl (Diltiazem Hcl 60 Mg Tablet) 120 mg PO DAILY [facility]; Protocol Ezetimibe (Ezetimibe 10 Mg Tablet) 10 mg PO BEDTIME [facility] Last Admin: 08/19/23 22:09 Dose: 10 mg Documented By: NELI Ferrous Sulfate (Ferrous Sulfate 324 Mg Tablet.) 324 mg PO DAILY [facility] Last Admin: 08/19/23 09:39 Dose: 324 mg Documented By: KATHRYN Fluoxetine HCl (Fluoxetine Hcl 20 Mg Capsule) 40 mg PO DAILY [facility] Last Admin: 08/19/23 09:38 Dose: 40 mg Documented By: KATHRYN Gabapentin (Gabapentin 300 Mg Capsule) 300 mg PO BID [facility] Last Admin: 08/19/23 22:10 Dose: 300 mg Documented By: NELI Hydroxyurea (Hydroxyurea 500 Mg Capsule) 500 mg PO DAILY [facility] Last Admin: 08/19/23 10:39 Dose: 500 mg Documented By: KATHRYN Piperacillin Sod/Tazobactam (Sod 4.5 gm/ Sodium Chloride) 100 mls @ 200 mls/hr IV Q12H [facility] Last Infusion: 08/20/23 07:08 Dose: Infused Documented By: HENRY Multivitamins/Vitamin C (Multivitamin Tablet) 1 tab PO DAILY [facility] Last Admin: 08/19/23 09:38 Dose: 1 tab Documented By: KATHRYN Omeprazole (Omeprazole 20 Mg Capsule.) 20 mg PO DAILY@0630 [facility] Last Admin: 08/20/23 06:17 Dose: 20 mg Documented By: NELI Ondansetron HCl (Ondansetron Hcl 4 Mg/2 Ml Vial) 4 mg IVPUSH Q8H PRN PRN Reason: Nausea and Vomiting Last Admin: 08/18/23 21:02 Dose: 4 mg Documented By: DEONTE Oxycodone HCl (Oxycodone Hcl Immed Release 5 Mg Tablet) 5 mg PO TID [facility] Last Admin: 08/19/23 22:10 Dose: 5 mg Documented By: NELI Senna (Sennosides 8.6 Mg Tablet) 17.2 mg PO BEDTIME PRN PRN Reason: Constipation Sodium Chloride (0.9 % Sodium Chloride Flush 3 Ml Syringe) 3 ml IVFLUSH QSHIFT [facility] Last Admin: 08/19/23 22:09 Dose: 3 ml Documented By: NELI Topiramate (Topiramate 25 Mg Tablet) 50 mg PO BID [facility] Last Admin: 08/19/23 22:09 Dose: 50 mg Documented By: NELI Vancomycin HCl (Vancomycin Hcl 125 Mg Capsule) 125 mg PO Q6H [facility] Last Admin: 08/20/23 06:17 Dose: 125 mg Documented By: NELI Vitamin D (Cholecalciferol (Vitamin D3) 25 Mcg Tablet) 25 mcg PO DAILY [facility] Last Admin: 08/19/23 09:38 Dose: 25 mcg Documented By: KATHRYN Zolpidem Tartrate (Zolpidem Tartrate 5 Mg Tablet) 5 mg PO BEDTIME [facility] Last Admin: 08/19/23 22:09 Dose: 5 mg Documented By: NELI Labs 08/20/23 05:10 08/20/23 05:10 Labs: Laboratory Results - last 24 hr 08/18/23 08/18/23 08/19/23 14:24 14:46 09:38 MCV MCH MCHC RDW Plt Count MPV Absolute Nucleated RBC Nucleated RBC % (auto) Smear Path Review SEE NOTE Anion Gap Estim Creat Clear Calc Estimated GFR Random Glucose Calcium C-Reactive Protein 8.89 H Stl C. cayetanensis PCR Not Detected Stool Rotavirus A PCR Not Detected Stl Adenov F 40/41 PCR Not Detected Stool Astrovirus (PCR) Not Detected Stool Campylobacter PCR Not Detected Stool Cryptosporidium PCR Not Detected Stl Sh Tox Pr E STEC PCR Not Detected Stool E coli O157 PCR Not applicable Stl Enterotoxigenic E PCR Not Detected Stool EPEC (PCR) Not Detected Stool EAEC (PCR) Not Detected Stl E. histolytica PCR Not Detected Stool Giardia Lamblia PCR Not Detected Stl P. shigelloides PCR Not Detected Stool Salmonella PCR Not Detected Stool Sapovirus (PCR) Not Detected Stl Shigella/EIEC PCR Not Detected St Y.enterocolitica PCR Not Detected Stool Vibrio (PCR) Not Detected Stl Vibrio cholerae PCR Not Detected Stl Norovirus GI/GII PCR Not Detected 08/20/23 05:10 MCV 114.5 H MCH 37.5 H MCHC 32.8 RDW 15.7 Plt Count 178 MPV 10.9 Absolute Nucleated RBC 0.000 Nucleated RBC % (auto) 0.0 Smear Path Review Anion Gap 18 Estim Creat Clear Calc 11.2 Estimated GFR 13 Random Glucose 95 Calcium 8.0 L C-Reactive Protein Stl C. cayetanensis PCR Stool Rotavirus A PCR Stl Adenov F 40 PCR Stool Astrovirus (PCR) Stool Campylobacter PCR Stool Cryptosporidium PCR Stl Sh Tox Pr E STEC PCR Stool E coli O157 PCR Stl Enterotoxigenic E PCR Stool EPEC (PCR) Stool EAEC (PCR) Stl E. histolytica PCR Stool Giardia Lamblia PCR Stl P. shigelloides PCR Stool Salmonella PCR Stool Sapovirus (PCR) Stl Shigella/EIEC PCR St Y.enterocolitica PCR Stool Vibrio (PCR) Stl Vibrio cholerae PCR Stl Norovirus GI/GII PCR Microbiology Microbiology Results: Microbiology 08/18/23 19:36 Blood Culture - Preliminary Blood - Venous No growth after 24 hours. 08/18/23 19:36 Blood Culture - Preliminary Blood - Venous No growth after 24 hours. Assessment and Plan (1) Acute diverticulitis: Status: Acute (2) AAA (abdominal aortic aneurysm) without rupture: Status: Acute (3) C. difficile colitis: Status: Acute Assessment and Plan: d3 72yo F with HTN, ESRD on HD MWF, aortic stenosis, pAF on apixaban, hx fem/fem bypass, hx PE on apixaban, hx TIA, recent Cdiff 03/13, recent admission to [facility] 05/26-06/19 for MRSA bacteremia presenting with recurrent Cdiff diarrhea with diverticulitis and having missed 1 dose of HD concern for TIA on 08/19/23 with L facial droop and word-finding difficulties TIA - Facial droop resolved. Per [employer]CHOOL SPEECH THERAPIST some mild expressive aphasia. Not tPA candidate due to anticoagulation with apixaban. Continue telemetry; TTE pending. CT with R frontal encephalomalacia likely from old CVA. Carotid dopplers with 50-79% R ICA stenosis, complete L ICA stenosis; will discuss with Vascular Surgery. acute diverticultiis without perforation or abscess - pip/foster 08/17-. Consider outpt colonoscopy after infections resolve. Cdiff colitis, recurrent - PO vanco 08/17-. ID consulted, recommends: 25 qid 10 d 125 tid Vancomycin one week 125 bid Vancomycin one week 125 daily one week 125 mg every ,,Friday thereafter and dont stop. ESRD on HD MWF - Nephrology consulted, HD yesterday and today pAF - continue apixaban - resume metoprolol + diltiazem for rate control HTN - metoprolol + diltiazem as above hx PE - apixaban as above AAA, 4.9cm diameter - outpt surveillance per Vasc Surg HLD - ezetimibe, atorvastatin mood disorder - fluoxetine, clonazepam VTE ppx - apixaban dispo - PT eval done, plan home with family support. OT eval pending. Outpt SCHO[employer] SPEECH THERAPIST for speech therapy? In my clinical judgment, the patient requires continued inpatient hospitalization for the following reasons: IV ABX Total time managing care of this patient today: 45 minutes. Quality Stroke Does the patient have a stroke diagnosis?: No VTE Prior VTE?: Yes VTE Risk Level:: Medical - moderate - high VTE Device Contraindication: Treatment Not Indicated VTE Drug Contraindication: N/A - Med Ordered
[2023-08-20] MEDS: Apixaban 5 MG TABLET PO ×2 (11:38→22:15)
[2023-08-20] MEDS: Multivitamin TABLET 1 TAB PO (11:38)
[2023-08-20] MEDS: clonazePAM 1 MG TABLET PO ×2 (11:38→16:27)
[2023-08-20] MEDS: Ferrous Sulfate 324 MG TABLET.DR PO (11:39)
[2023-08-20] MEDS: Cyanocobalamin (Vitamin B-12) 1,000 MCG TABLET 1000 MCG PO (11:39)
[2023-08-20] MEDS: dilTIAZem HCL 60 MG TABLET 120 MG PO (11:39)
[2023-08-20] MEDS: Atorvastatin Calcium 80 MG TABLET PO (11:39)
[2023-08-20] MEDS: Topiramate 25 MG TABLET 50 MG PO ×2 (11:41→22:07)
[2023-08-20] MEDS: Ascorbic Acid 500 MG TABLET PO (11:41)
[2023-08-20] MEDS: carvediloL 25 MG TABLET PO ×2 (11:41→22:09)
[2023-08-20] MEDS: FLUoxetine HCl 20 MG CAPSULE 40 MG PO (11:41)
[2023-08-20] MEDS: oxyCODONE HCl Immed Release 5 MG TABLET PO ×2 (11:42→16:26)
[2023-08-20] MEDS: Hydroxyurea 500 MG CAPSULE PO (11:42)
[2023-08-20] MEDS: Cholecalciferol (Vitamin D3) 25 MCG TABLET PO (11:42)
[2023-08-20] MEDS: Gabapentin 300 MG CAPSULE PO (11:42)
--- NOTE | 2023-08-20 11:56 | PM.CNNEP ---
History of Present Illness Reason for Consult Consult date: 08/20/23 Chief Complaint Chief complaint: cdiff, diarrhea, esrd hd History of Present Illness Narrative: 72 year old patient with history of ESRD followed by Dr Duffy admitted with diarrhea. At the time of the consultation she denies fever, chills, shortness of breath, chest pain abdominal pain or vomiting. Patient had HD earlier this mnorning. Review of Systems Review of Systems 10 points ROS negative except for pertinent in HPI PMFSH Past Medical History Medical History CVA (cerebral vascular accident) Aortic stenosis History of Clostridioides difficile colitis Coronary artery disease Abdominal aortic aneurysm Peripheral vascular disease ESRD on dialysis Anxiety Atrial fibrillation MRSA bacteremia Family History Family history: reviewed and not pertinent Surgical History Surgical History History of aortic valve replacement with bioprosthetic valve Social History Social History Patient Tobacco Use Status: Former Tobacco user service: No Meds Allergies Allergy/AdvReac Type Severity Reaction Status Date / Time No Known Allergies Allergy Verified 08/18/23 12:38 Active Medications: Current Medications Acetaminophen (Acetaminophen 325 Mg Tablet) 650 mg PO Q6H PRN PRN Reason: Pain, Mild (Pain Scale 1-3) Last Admin: 08/19/23 17:45 Dose: 650 mg Apixaban (Apixaban 5 Mg Tablet) 5 mg PO BID [facility] BEDS AT [facility] Last Admin: 08/20/23 11:38 Dose: 5 mg Ascorbic Acid (Ascorbic Acid 500 Mg Tablet) 500 mg PO DAILY [facility]S [facility]CLUDE 234 BEDS AT [facility] Last Admin: 08/20/23 11:41 Dose: 500 mg Atorvastatin Calcium (Atorvastatin Calcium 80 Mg Tablet) 80 mg PO DAILY [facility] 234 BEDS AT [facility] Last Admin: 08/20/23 11:39 Dose: 80 mg Carvedilol (Carvedilol 25 Mg Tablet) 25 mg PO BID [facility]S [facility]CLUDE 234 BEDS AT [facility]; Protocol Last Admin: 08/20/23 11:41 Dose: 25 mg Clonazepam (Clonazepam 1 Mg Tablet) 1 mg PO TID [facility]S [facility]CLUDE 234 BEDS AT [facility] Last Admin: 08/20/23 11:38 Dose: 1 mg Cyanocobalamin (Cyanocobalamin (Vitamin B-12) 1,000 Mcg Tablet) 1,000 mcg PO DAILY [facility]CLUDE 234 BEDS AT [facility] Last Admin: 08/20/23 11:39 Dose: 1,000 mcg Diltiazem HCl (Diltiazem Hcl 60 Mg Tablet) 120 mg PO DAILY [facility]CLUDE 234 BEDS AT [facility]; Protocol Last Admin: 08/20/23 11:39 Dose: 120 mg Ezetimibe (Ezetimibe 10 Mg Tablet) 10 mg PO BEDTIME [facility]S [facility]CLUDE 234 BEDS AT [facility] Last Admin: 08/19/23 22:09 Dose: 10 mg Ferrous Sulfate (Ferrous Sulfate 324 Mg Tablet.) 324 mg PO DAILY [facility]CLUDE 234 BEDS AT [facility] Last Admin: 08/20/23 11:39 Dose: 324 mg Fluoxetine HCl (Fluoxetine Hcl 20 Mg Capsule) 40 mg PO DAILY [facility]CLUDE 234 BEDS AT [facility] Last Admin: 08/20/23 11:41 Dose: 40 mg Gabapentin (Gabapentin 300 Mg Capsule) 300 mg PO BID [facility]S [facility]CLUDE 234 BEDS AT [facility] Last Admin: 08/20/23 11:42 Dose: 300 mg Hydroxyurea (Hydroxyurea 500 Mg Capsule) 500 mg PO DAILY [facility]CLUDE 234 BEDS AT [facility] Last Admin: 08/20/23 11:42 Dose: 500 mg Piperacillin Sod/Tazobactam (Sod 4.5 gm/ Sodium Chloride) 100 mls @ 200 mls/hr IV Q12H [facility]S [facility]CLUDE 234 BEDS AT [facility] Last Infusion: 08/20/23 07:08 Dose: Infused Multivitamins/Vitamin C (Multivitamin Tablet) 1 tab PO DAILY [facility]CLUDE 234 BEDS AT [facility] Last Admin: 08/20/23 11:38 Dose: 1 tab Omeprazole (Omeprazole 20 Mg Capsule.) 20 mg PO DAILY@0630 [facility]S [facility]CLUDE 234 BEDS AT [facility] Last Admin: 08/20/23 06:17 Dose: 20 mg Ondansetron HCl (Ondansetron Hcl 4 Mg/2 Ml Vial) 4 mg IVPUSH Q8H PRN PRN Reason: Nausea and Vomiting Last Admin: 08/18/23 21:02 Dose: 4 mg Oxycodone HCl (Oxycodone Hcl Immed Release 5 Mg Tablet) 5 mg PO TID [facility]CLUDE 234 BEDS AT [facility] Last Admin: 08/20/23 11:42 Dose: 5 mg Senna (Sennosides 8.6 Mg Tablet) 17.2 mg PO BEDTIME PRN PRN Reason: Constipation Sodium Chloride (0.9 % Sodium Chloride Flush 3 Ml Syringe) 3 ml IVFLUSH QSHIFT COUNTS [facility]CLUDE 234 BEDS AT [facility] Last Admin: 08/20/23 11:22 Dose: Not Given Topiramate (Topiramate 25 Mg Tablet) 50 mg PO BID [facility]S [facility]CLUDE 234 BEDS AT [facility] Last Admin: 08/20/23 11:41 Dose: 50 mg Vancomycin HCl (Vancomycin Hcl 125 Mg Capsule) 125 mg PO Q6H COUNTS [facility]CLUDE 234 BEDS AT [facility] Last Admin: 08/20/23 11:41 Dose: 125 mg Vitamin D (Cholecalciferol (Vitamin D3) 25 Mcg Tablet) 25 mcg PO DAILY [facility]CLUDE 234 BEDS AT [facility] Last Admin: 08/20/23 11:42 Dose: 25 mcg Zolpidem Tartrate (Zolpidem Tartrate 5 Mg Tablet) 5 mg PO BEDTIME [facility]CLUDE 234 BEDS AT [facility] Last Admin: 08/19/23 22:09 Dose: 5 mg Home Medications ?Medication ?Instructions ?Recorded ?Confirmed ?Last Taken ?Type apixaban 5 mg tablet (Eliquis) 5 mg PO BID 08/18/23 08/18/23 08/18/23 History ascorbic acid (vitamin C) 500 mg 500 mg PO DAILY 08/18/23 08/18/23 08/18/23 History tablet carvedilol 25 mg tablet 25 mg PO BID 08/18/23 08/18/23 08/18/23 History cholecalciferol (vitamin D3) 25 25 mcg PO DAILY 08/18/23 08/18/23 08/18/23 History mcg (1,000 unit) tablet clonazepam 1 mg tablet 1 mg PO TID 08/18/23 08/18/23 08/18/23 History cyanocobalamin (vitamin B-12) 1,000 mcg PO DAILY 08/18/23 08/18/23 08/18/23 History 1,000 mcg tablet diltiazem HCl 120 mg tablet 120 mg PO DAILY 08/18/23 08/18/23 08/18/23 History ezetimibe 10 mg tablet 10 mg PO BEDTIME 08/18/23 08/18/23 08/17/23 History ferrous sulfate 325 mg (65 mg 325 mg PO DAILY 08/18/23 08/18/23 08/18/23 History iron) tablet,delayed release fluoxetine 40 mg capsule 40 mg PO DAILY 08/18/23 08/18/23 08/18/23 History furosemide 80 mg tablet 80 mg PO DAILY 08/18/23 08/18/23 08/18/23 History gabapentin 100 mg capsule 300 mg PO BID 08/18/23 08/18/23 08/18/23 History hydroxyurea 500 mg capsule 500 mg PO DAILY 08/18/23 08/18/23 08/18/23 History multivitamin 1 tab PO DAILY 08/18/23 08/18/23 08/18/23 History oxycodone 5 mg tablet 5 mg PO TID 08/18/23 08/18/23 08/18/23 History pantoprazole 40 mg tablet,delayed 40 mg PO DAILY 08/18/23 08/18/23 08/18/23 History release rosuvastatin 20 mg tablet 20 mg PO DAILY 08/18/23 08/18/23 08/18/23 History topiramate 50 mg tablet 50 mg PO BID 08/18/23 08/18/23 08/18/23 History zolpidem 5 mg tablet 5 mg PO BEDTIME 08/18/23 08/18/23 08/17/23 History Physical Exam Vital Signs: Last Vital Signs Temp 97.3 F 08/20/23 08:00 Pulse 83 08/20/23 11:41 Resp 18 08/20/23 08:00 BP 149/67 H 08/20/23 11:41 Pulse Ox 93 08/20/23 08:00 O2 Del Method Room Air 08/20/23 08:00 BMI result Body Mass Index 19.4 Const General: comfortable and no acute distress HEENT Head: Yes normocephalic and Yes atraumatic Neck Neck: Yes supple Resp Effort & Inspection: normal respiratory effort Cardio Heart sounds: S1 normal heart sound present and S2 normal heart sound present GI Palpation (GI): Soft to palpation and nontender Extrem General: Yes no pedal edema Results Lab Results 08/20/23 05:10 08/20/23 05:10 Lab results: Chemistry 08/18/23 08/19/23 08/20/23 14:24 09:38 05:10 Sodium 138 137 137 Potassium 4.3 4.1 3.5 Carbon Dioxide 21 L 16 L 18 L BUN 70 H 71 H 32 H Creatinine 5.52 H* 5.76 H* 3.59 H Calcium 8.0 L 7.6 L 8.0 L Hematology 08/18/23 08/19/23 08/20/23 14:24 04:42 05:10 WBC 11.8 H 14.5 H 15.6 H Hgb 11.7 L 11.6 L 11.9 L Plt Count 191 198 178 Assessment and Plan (1) ESRD (end stage renal disease): Status: Acute (2) Anemia: Status: Acute Plan knonw ESRD on HD at [facility] followed by Dr Duffy presented with recurrent Cdiff diarrhea with diverticulitis and having missed 1 dose of HD nephrogenic anemia REC HD - renal diet P binders no need for ANDRY Procedures Date of Service Date of Service: 08/20/23
[2023-08-20] MEDS: Acetaminophen 325 MG TABLET 650 MG PO (13:44)
--- NOTE | 2023-08-20 14:35 | MHC.SLORD ---
Speech Language Pathology Order Status: GLOVE BOARDER attempted to see patient this afternoon. Echo had just started. GLOVE BOARDER to attempt visit again later in day if time allows. Otherwise, GLOVE BOARDER to visit tomorrow.
--- NOTE | 2023-08-20 14:39 | MHC.CLN ---
NUTRITION CONSULT FOR POOR PO. PATIENT WITH ESRD ON HEMODIALYSIS. C-DIFF POSITIVE. DIET ADVANCED TODAY FROM CLEAR LIQUIDS. DIET=REGULAR, LOW POTASSIUM, LOW PHOSPHORUS. ADDING ENSURE CLEAR BID. SUPPLEMENT APPROPRIATE WITH ESRD. PROVIDES [address], [address] TO FOLLOW UP WEEKLY.
[2023-08-20 15:38] LABS: Glucose, Whole Blood 108 mg/dL (60-115)
--- NOTE | 2023-08-20 15:48 | MHC.CM.PN ---
per rounds pt expected to dc in 1 to 2 days
--- NOTE | 2023-08-20 17:02 | HO.SKINPHOTO ---
Addendum entered by Dahlia Blackwell RN 08/20/23 17:03: coccyx Original Note: Location: Category: Stage: Length: Width: Depth: cm Location: Category: Stage: Length: Width: Depth: cm Location: Category: Stage: Length: Width: Depth: cm Location: Category: Stage: Length: Width: Depth: cm Location: Category: Stage: Length: Width: Depth: cm Location: Category: Stage: Length: Width: Depth: cm
[2023-08-20] MEDS: 0.9 % Sodium Chloride Flush 3 ML SYRINGE IVFLUSH (18:26)
[2023-08-20] MEDS: Ezetimibe 10 MG TABLET PO (22:07)
[2023-08-20] MEDS: Albumin Human 25 % 100 ML IV (23:14)
[2023-08-21] VITALS (7 sets, daily range): BP systolic 133–174; BP diastolic 63–81; PULSE 61–84; RESP 12–18; TEMP 36.1–36.9; O2SAT 94–99
[2023-08-21] MEDS: vancomycin HCL 125 MG CAPSULE PO ×5 (00:41→23:18)
[2023-08-21] MEDS: oxyCODONE HCl Immed Release 5 MG TABLET PO (03:48)
--- NOTE | 2023-08-21 04:20 | PC.NURSE ---
pt very lethargic this evening shes so weak not able to speak alert but she even stated herself she don't know why shes so tired spoke with dr Fall meds held; oxycodone clonopin, neurontin, bp stable 107/56, 111/63 md ordered albumin x 1 dose given . 3 am pt more awake she requested pain medication shes talking and drinking water dr Fall ordered x1 dose of oxycodone given sanaz monitor
[2023-08-21] MEDS: Omeprazole 20 MG CAPSULE.DR PO (05:32)
[2023-08-21] MEDS: Piperacillin Sodium/Tazobactam 4.5 GM in 0.9 % Sodium Chloride 100 ML IV ×2 (05:48→17:37)
[2023-08-21] MEDS: 0.9 % Sodium Chloride Flush 3 ML SYRINGE IVFLUSH ×3 (08:39→20:33)
--- NOTE | 2023-08-21 10:47 | P.PNNP_ITS ---
Subjective Subjective Date of Service: 08/21/23 Interval history: seen and examined lethargic Physical Exam 2 Vital Signs: Vital Signs: Last Vital Signs Temp 97.6 F 08/21/23 08:00 Pulse 74 08/21/23 08:00 Resp 18 08/21/23 08:00 BP 133/63 08/21/23 08:00 Pulse Ox 96 08/21/23 08:00 O2 Del Method Room Air 08/21/23 08:00 BMI result Body Mass Index 19.4 Const: General: comfortable and no acute distress HEENT: Head: Yes normocephalic and Yes atraumatic Neck: Neck: Yes supple Resp: Effort & Inspection: normal respiratory effort Cardio: Heart sounds: S1 normal heart sound present and S2 normal heart sound present GI: Palpation (GI): Soft to palpation and nontender Extrem: General: Yes no pedal edema Objective Data Labs 08/20/23 05:10 08/20/23 05:10 Labs: Laboratory Results - last 24 hr 08/19/23 09:38 POC Glucose 108 Microbiology Microbiology Results: Microbiology 08/18/23 19:36 Blood - Venous Blood Culture - Preliminary No growth after 48 hours. 08/18/23 19:36 Blood - Venous Blood Culture - Preliminary No growth after 48 hours. Procedures Date of Service Date of Service: 08/21/23 Assessment & Plan Assessment and plan (1) ESRD (end stage renal disease): Status: Acute (2) Anemia: Status: Acute Plan marianaonw ESRD on HD at [facility] followed by Dr Duffy presented with recurrent Cdiff diarrhea with diverticulitis and having missed 1 dose of HD nephrogenic anemia REC HD tomorrow renal diet P binders no need for ANDYR Time Spent With Patient Time: Total time managing care of this patient today ____ minutes. Progress Note: Quality Stroke Does the patient have a stroke diagnosis?: No
--- NOTE | 2023-08-21 13:53 | HO.VASCPN ---
Subjective Subjective Date of Service: 08/21/23 Patient reports: no new complaints and feels better Interval history: Patient seen and examined. Significant deterioration over the past day or 2. Had an episode of TIA now has a facial droop. Being worked up for TIA / stroke. Now presents for vascular follow-up. Physical Exam Vital Signs: Vital Signs: Last Vital Signs Temp 98.3 F 08/21/23 12:00 Pulse 78 08/21/23 12:00 Resp 18 08/21/23 12:00 BP 143/67 H 08/21/23 12:00 Pulse Ox 99 08/21/23 12:00 O2 Del Method Room Air 08/21/23 12:00 BMI result Body Mass Index 19.4 Progress Note: A&P Assessment and plan (1) TIA (transient ischemic attack): Status: Acute Assessment and Plan: In short patient has TIA. She has been seen and worked up by Neurology. I did review the carotid ultrasound which demonstrates on the right side it is 50-79% stenosis with a peak systolic of only 136. It leads me to believe that it is towards the lower side of this. Ideally the patient should have a CT angiogram but due to the poor renal function can not have this. At the current time would manage this conservatively. I do not believe that the carotids are the source of her issues. We will follow up on an as-needed basis. Thank you for allowing us to assist in her care. Time Spent With Patient Time: Total time managing care of this patient today ____ minutes. Procedures Date of Service Date of Service: 08/21/23 Quality Stroke Does the patient have a stroke diagnosis?: No VTE Prior VTE?: Yes VTE Risk Level:: Medical - moderate - high VTE Device Contraindication: Treatment Not Indicated VTE Drug Contraindication: N/A - Med Ordered
[2023-08-21 14:27] LABS: Hematocrit 32.3 % (37.0-47.0); Hemoglobin 10.5 g/dl (12.0-16.0); Mean Corpuscular HGB Conc 32.5 g/dl (31.0-35.0); Mean Corpuscular Hemoglobin 36.8 pg (27.0-33.0); Mean Corpuscular Volume 113.3 fL (80.0-98.0); Mean Platelet Volume 11.3 fL (9.4-12.3); NRBC Pct Auto 0.2 /100WBC (0.0-0.2); Platelet Count 172 X10*3/uL (160-400); Red Blood Count 2.85 X10*6/uL (4.20-5.50); Red Cell Distribution Width 15.7 % (11.0-16.0); White Blood Count 8.1 X10*3/uL (4.8-10.8)
[2023-08-21 14:37] LABS: Anion Gap 15 (12-20); Blood Urea Nitrogen 24 mg/dL (9-16); C Reactive Protein 9.62 mg/dL (< or = 0.50); Calcium 8.1 mg/dL (8.4-10.2); Carbon Dioxide 18 mmol/L (22-29); Chloride 104 mmol/L (96-108); Cholesterol 72 mg/dL (<200); Creatinine Clr Calc Pharmacy 11.2; Estimated Glomerular Filt Rate 13; Glucose Random 161 mg/dL (60-115); HDL Cholesterol 24 mg/dL (>40); LDL Cholesterol Calculated 37 mg/dL (<100); Potassium 3.4 mmol/L (3.3-5.1); Sodium 134 mmol/L (135-145); Triglycerides 56 mg/dL (<150)
--- NOTE | 2023-08-21 14:43 | PC.NURSE ---
patients daughter Laney left [facility] phone number [phone] in case we are not able to reach her at the home phone number
--- NOTE | 2023-08-21 15:19 | HO.WOUND ---
Wound Consult: Initial 72yr old?F admitted to [facility] on 08/17 - See progress notes and H&P for detailed history.? Wound consult placed for sacral wound POA.? Patient agreeable to assessment and photo documentation.? Sacrum Etiology: ?Unstageable pressure injury?Present on Admission Wound Bed: dentral area of tissue loss with adhernt yellow slough attached to wound bed - circumferential dark purple nonblanchable tissue in evolution Drainage / Odor: Small yellow serosang Edges: ? Unattached Cleopatra wound: ?red pink slow to patty tissue - No Induration, Fluctuance or Warmth noted Pain: pain reported Goals of Treatment: ? Durafiber AG for moisture management and foam dressing to aid in protection from moisture, friction and pressure. Recommendations: 1. Turn and Reposition every 2 hours and as needed for patient comfort.? Use pillows or wedges to support off loading positions. 2. Off Load all bony prominences with use of pillows and heel boots if needed.? Apply Preventative foams where needed. ? 3. Monitor for incontinence and moisture control, use barrier creams when needed for prevention and treatment. 4. Provide adequate and supplemental nutrition.? 5. Order or Continue low air loss mattress. 6. Sacrum - Cleanse with Ns moist gauze, pat dry. Apply skin prep to periwound. Lightly pack open wound with small cut to size durafiber AG, cover with foam dressing. Change every other day. Re-consult wound care Nurse for wound deterioration or wound changes.
[2023-08-21 15:23] LABS: Reflex LDLD? No
--- NOTE | 2023-08-21 15:36 | MHC.CM.PN ---
CM MET WITH PTS DAUGHTER/HEALTH PROMOTER/HCP, JOBY SHE REPORTS THEY DO NOT WANT THE PT TO GO TO A SNF SHE SAYS SHE IS HOPING TO GET PT ONTO [facility], PROCESS EXPLAINED SHE SAYS SHE IS HAVING A HOSPITAL BED AND COMMODE DELIVERED SOON SHE ASKED IF PTS HCP HAD BEEN INVOKED, AND SAYS SHE THINKS IT WOULD NEED TO BE FOR HER TO SIGN FOR DME CM EXPLAINED THE PTS WORKUP WAS STILL IN PROCESS, SO HCP HAS NOT BEEN INVOKED AT THIS TIME SHE WILL CHECK IN TOMORROW FOR UPDATES
--- NOTE | 2023-08-21 16:22 | HO.PM.IMPN ---
Subjective Subjective Date of Service: 08/21/23 Interval History: seen and examined this morning follow up for cdif, esrd on HD, tia left side facial droop noted again this am, patient awake but slow to respond to questions; no other deficits noted Review of Systems Review of Systems: Yes all other systems are reviewed and are negative Constitutional Constitutional: Denies fever(s) Cardiovascular Cardiovascular: Denies chest pain Gastrointestinal Gastrointestinal: Denies abdominal pain Physical Exam Vital Signs: Vital Signs: Last Vital Signs Temp 98.3 F 08/21/23 12:00 Pulse 78 08/21/23 12:00 Resp 18 08/21/23 12:00 BP 143/67 H 08/21/23 12:00 Pulse Ox 99 08/21/23 12:00 O2 Del Method Room Air 08/21/23 12:00 BMI result Body Mass Index 19.4 Const: Other: awake, answering questions appropriately but slow to respond. General: comfortable Orientation/consciousness: oriented to person and oriented to place Resp: Effort & Inspection: normal respiratory effort, able to speak in complete sentences, no respiratory distress and no use of accessory muscles Cardio: Rate: regular rate GI: Inspection: No distended Palpation (GI): Soft to palpation Skin: Other: bruising left forehead; scalp hematoma x 2 right side Neuro: Other: left facial droop; no focal weakness of arms or legs noted General: oriented to person and oriented to place Objective Data Active Medications Acetaminophen (Acetaminophen 325 Mg Tablet) 650 mg PO Q6H PRN PRN Reason: Pain, Mild (Pain Scale 1-3) Last Admin: 08/20/23 13:44 Dose: 650 mg Documented By: HENRY Apixaban (Apixaban 5 Mg Tablet) 5 mg PO BID [facility] Last Admin: 08/21/23 11:39 Dose: Not Given Documented By: SIMA Non-Admin Reason: PT too lethargic Ascorbic Acid (Ascorbic Acid 500 Mg Tablet) 500 mg PO DAILY [facility] Last Admin: 08/21/23 11:39 Dose: Not Given Documented By: SIMA Non-Admin Reason: PT too lethargic Atorvastatin Calcium (Atorvastatin Calcium 80 Mg Tablet) 80 mg PO DAILY [facility] Last Admin: 08/21/23 11:40 Dose: Not Given Documented By: SIMA Non-Admin Reason: PT too lethargic Carvedilol (Carvedilol 25 Mg Tablet) 25 mg PO BID [facility]; Protocol Last Admin: 08/21/23 11:40 Dose: Not Given Documented By: SIMA Non-Admin Reason: PT too lethargic Clonazepam (Clonazepam 1 Mg Tablet) 1 mg PO TID [facility] Last Admin: 08/21/23 15:54 Dose: Not Given Documented By: SIMA Non-Admin Reason: PT too lethargic Cyanocobalamin (Cyanocobalamin (Vitamin B-12) 1,000 Mcg Tablet) 1,000 mcg PO DAILY [facility] Last Admin: 08/21/23 11:40 Dose: Not Given Documented By: SIMA Non-Admin Reason: PT too lethargic Diltiazem HCl (Diltiazem Hcl 60 Mg Tablet) 120 mg PO DAILY [facility]; Protocol Last Admin: 08/21/23 11:40 Dose: Not Given Documented By: SIMA Non-Admin Reason: PT too lethargic Ezetimibe (Ezetimibe 10 Mg Tablet) 10 mg PO BEDTIME [facility] Last Admin: 08/20/23 22:07 Dose: 10 mg Documented By: MELIDA Ferrous Sulfate (Ferrous Sulfate 324 Mg Tablet.Dr) 324 mg PO DAILY [facility] Last Admin: 08/21/23 11:40 Dose: Not Given Documented By: SIMA Non-Admin Reason: PT too lethargic Fluoxetine HCl (Fluoxetine Hcl 20 Mg Capsule) 40 mg PO DAILY [facility] Last Admin: 08/21/23 11:41 Dose: Not Given Documented By: SIMA Non-Admin Reason: PT too lethargic Gabapentin (Gabapentin 300 Mg Capsule) 300 mg PO BID [facility] Last Admin: 08/21/23 11:41 Dose: Not Given Documented By: SIMA Non-Admin Reason: PT too lethargic Hydroxyurea (Hydroxyurea 500 Mg Capsule) 500 mg PO DAILY [facility] Last Admin: 08/21/23 11:41 Dose: Not Given Documented By: SIMA Non-Admin Reason: PT too lethargic Piperacillin Sod/Tazobactam (Sod 4.5 gm/ Sodium Chloride) 100 mls @ 200 mls/hr IV Q12H [facility] Last Infusion: 08/21/23 06:21 Dose: Infused Documented By: MELIDA Multivitamins/Vitamin C (Multivitamin Tablet) 1 tab PO DAILY [facility] Last Admin: 08/21/23 11:41 Dose: Not Given Documented By: SIMA Non-Admin Reason: PT too lethargic Omeprazole (Omeprazole 20 Mg Capsule.Dr) 20 mg PO DAILY@0630 [facility] Last Admin: 08/21/23 05:32 Dose: 20 mg Documented By: MELIDA Ondansetron HCl (Ondansetron Hcl 4 Mg/2 Ml Vial) 4 mg IVPUSH Q8H PRN PRN Reason: Nausea and Vomiting Last Admin: 08/18/23 21:02 Dose: 4 mg Documented By: DEONTE Oxycodone HCl (Oxycodone Hcl Immed Release 5 Mg Tablet) 5 mg PO TID [facility] Last Admin: 08/21/23 15:54 Dose: Not Given Documented By: SIMA Non-Admin Reason: PT too lethargic Senna (Sennosides 8.6 Mg Tablet) 17.2 mg PO BEDTIME PRN PRN Reason: Constipation Sodium Chloride (0.9 % Sodium Chloride Flush 3 Ml Syringe) 3 ml IVFLUSH QSHIFT [facility] Last Admin: 08/21/23 15:53 Dose: 3 ml Documented By: SIMA Topiramate (Topiramate 25 Mg Tablet) 50 mg PO BID [facility] Last Admin: 08/21/23 11:41 Dose: Not Given Documented By: SIMA Non-Admin Reason: PT too lethargic Vancomycin HCl (Vancomycin Hcl 125 Mg Capsule) 125 mg PO Q6H [facility] Last Admin: 08/21/23 12:20 Dose: 125 mg Documented By: SIMA Vitamin D (Cholecalciferol (Vitamin D3) 25 Mcg Tablet) 25 mcg PO DAILY [facility] Last Admin: 08/21/23 11:40 Dose: Not Given Documented By: SIMA Non-Admin Reason: PT too lethargic Zolpidem Tartrate (Zolpidem Tartrate 5 Mg Tablet) 5 mg PO BEDTIME [facility] Last Admin: 08/20/23 22:17 Dose: Not Given Documented By: MELIDA Non-Admin Reason: held med per md pt lethargic Labs 08/21/23 14:09 08/21/23 14:09 Labs: Laboratory Results - last 24 hr 08/21/23 14:09 MCV 113.3 H MCH 36.8 H MCHC 32.5 RDW 15.7 Plt Count 172 MPV 11.3 Absolute Nucleated RBC 0.020 H Nucleated RBC % (auto) 0.2 Anion Gap 15 Estim Creat Clear Calc 11.2 Estimated GFR 13 Random Glucose 161 H Calcium 8.1 L C-Reactive Protein 9.62 H Triglycerides 56 Cholesterol 72 LDL Cholesterol, Calc 37 HDL Cholesterol 24 L Microbiology Microbiology Results: Microbiology 08/18/23 19:36 Blood Culture - Preliminary Blood - Venous No growth after 48 hours. 08/18/23 19:36 Blood Culture - Preliminary Blood - Venous No growth after 48 hours. Assessment and Plan (1) TIA (transient ischemic attack): Status: Acute (2) ESRD (end stage renal disease): Status: Acute (3) C. difficile colitis: Status: Acute Assessment and Plan: 72yo F with HTN, ESRD on HD MWF, aortic stenosis, pAF on apixaban, hx fem/fem bypass, hx PE on apixaban, hx TIA, recent Cdiff 03/13, [place] [facility] [place] bacteremia presenting with recurrent Cdiff diarrhea with diverticulitis and having missed 1 dose of HD concern for TIA/CVA TIA/CVA not tPA candidate due to apixaban carotid US -right side with 50-79% stenosis, seen by vascular surgery, does not feel that this is the source of tia or symptoms etc - outpatient follow up with her primary vascular surgeon recommended echo dilation of left atrium and moderate aortic valve stenosis, preserved ejection fraction seen by Neuro -recommended continue anticoagulation with Eliquis MRI negative for acute stroke continue apixaban [facility] evaluation pending Toxic metabolic encephalopathy Likely multifactorial due to 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 125 qid 10 d 125 tid Vancomycin one week 125 bid Vancomycin one week 125 daily one week 125 mg every M,,Friday thereafter and dont stop. ESRD on HD MWF, missed HD - Nephrology following pAF - continue apixaban metoprolol + diltiazem for bradcardia HTN metoprolol + diltiazem as above hx PE - apixaban as above AAA, 4.9cm diameter - outpt surveillance per Vasc Surg HLD - ezetimibe, atorvastatin mood disorder - fluoxetine, clonazepam VTE ppx - apixaban dispo - PT eval pending In my clinical judgment, the patient requires continued inpatient hospitalization for the following reasons: IV ABX, TIA workup Quality Stroke Does the patient have a stroke diagnosis?: No VTE Prior VTE?: Yes VTE Risk Level:: Medical - moderate - high VTE Device Contraindication: Treatment Not Indicated VTE Drug Contraindication: N/A - Med Ordered
[2023-08-21] MEDS: Ezetimibe 10 MG TABLET PO (20:32)
[2023-08-21] MEDS: Topiramate 25 MG TABLET 50 MG PO (20:32)
[2023-08-21] MEDS: carvediloL 25 MG TABLET PO (20:32)
[2023-08-21] MEDS: Apixaban 5 MG TABLET PO (20:32)
[2023-08-22] VITALS (10 sets, daily range): BP systolic 113–165; BP diastolic 58–97; PULSE 53–114; RESP 16–18; TEMP 36.3–37.2; O2SAT 95–98; BMI 19.4
--- NOTE | 2023-08-22 04:45 | PC.NURSE ---
pt still lethargic easily arousable when spken to wakes up for moment and falls back asleep , sedative medications are on hold vss. spoke to dr Jacobsen update given.
[2023-08-22] MEDS: Piperacillin Sodium/Tazobactam 4.5 GM in 0.9 % Sodium Chloride 100 ML IV (05:24)
[2023-08-22] MEDS: Omeprazole 20 MG CAPSULE.DR PO (05:25)
[2023-08-22 05:51] LABS: Glucose, Whole Blood 83 mg/dL (60-115)
--- NOTE | 2023-08-22 06:23 | PC.NURSE ---
very difficult to wake up this morning not responding as usual s not focusing dr Jacobsen at bedside to exam pt. order for stat ct of head and other tests. pt on way to cat scan vs o2 sat 97 % on RA , temp 97.8 HR 87 bp 150/68
[2023-08-22 07:35] LABS: MANUAL DIFF FLAG NO
[2023-08-22 07:38] LABS: Basophils Percent Auto 0.3 % (0-2); Eosinophils Absolute Auto 0.1 X10*3/uL (0.0-0.4); Eosinophils Percent Auto 1.7 % (0-4); Hematocrit 32.6 % (37.0-47.0); Hemoglobin 10.7 g/dl (12.0-16.0); Imm Gran Abs Auto 0.06 X10*3/uL (0.00-0.03); Imm Gran Pct Auto 0.8 % (0.0-0.4); Lymphocytes Absolute Auto 0.8 X10*3/uL (1.2-4.9); Lymphocytes Percent Auto 10.7 % (20-40); Mean Corpuscular HGB Conc 32.8 g/dl (31.0-35.0); Mean Corpuscular Volume 112.8 fL (80.0-98.0); Mean Platelet Volume 10.3 fL (9.4-12.3); Monocytes Absolute Auto 0.8 X10*3/uL (0.1-1.2); Neutrophils Absolute Auto 5.4 x10*3/uL (2.0-8.3); Neutrophils Percent Auto 75.5 % (45-73); Platelet Count 162 X10*3/uL (160-400); Red Blood Count 2.89 X10*6/uL (4.20-5.50); Red Cell Distribution Width 15.5 % (11.0-16.0); White Blood Count 7.2 X10*3/uL (4.8-10.8)
[2023-08-22 07:39] LABS: Venous Blood Gas Refer to POC result
[2023-08-22 07:40] LABS: VBG Base Excess -3.6 mmol/L; VBG HCO3 20 mmol/L (22-26); VBG pCO2 34 mmHg; VBG pH 7.38 (7.32-7.43); VBG pO2 53 mmHg
[2023-08-22 07:59] LABS: Ammonia 24 umol/L (13-55)
[2023-08-22 08:12] LABS: Alanine Aminotransferase 6 U/L (0-31); Albumin Level 2.9 g/dL (3.5-5.0); Alkaline Phosphatase 70 U/L (39-117); Anion Gap 16 (12-20); Aspartate Amino Transferase 13 U/L (5-31); Bilirubin Total 0.6 mg/dL (0.0-1.0); Blood Urea Nitrogen 31 mg/dL (9-16); Carbon Dioxide 19 mmol/L (22-29); Chloride 104 mmol/L (96-108); Creatinine Clr Calc Pharmacy 8.7; Estimated Glomerular Filt Rate 9; Glucose Random 93 mg/dL (60-115); Potassium 2.8 mmol/L (3.3-5.1); Sodium 136 mmol/L (135-145); Total Protein 5.8 g/dL (6.5-8.0)
--- NOTE | 2023-08-22 10:38 | MHC.CLN ---
F/U DIET=REGULAR, LOW PHOSPHORUS, LOW POTASSIUM. ENSURE CLEAR BID PROVIDES 480 KCALS, 16 G PROTEIN. ACCEPTS SUPPLEMENT. INCREASE TO ENSURE CLEAR TID. PROVIDES 720 KCALS, 24 G PROTEIN. QUALIFIES MODERATELY MALNOURISHED IN THE CONTEXT OF CHRONIC ILLNESS. ATE APPROX 40% WITH ASSISTANCE AT BREAKFAST TODAY. UNSTAGEABLE AREA TO SACRUM. FOLLOW FOR PO INTAKE AND SKIN INTEGRITY. SEE CLINICAL NUTRITION ASSESSMENT 08/22/23.
[2023-08-22] MEDS: vancomycin HCL 125 MG CAPSULE PO ×2 (12:44→17:40)
[2023-08-22] MEDS: Topiramate 25 MG TABLET 50 MG PO ×2 (12:44→20:20)
[2023-08-22] MEDS: carvediloL 25 MG TABLET PO (12:45)
[2023-08-22] MEDS: Apixaban 5 MG TABLET PO ×2 (12:45→20:20)
[2023-08-22] MEDS: Hydroxyurea 500 MG CAPSULE PO (12:45)
[2023-08-22] MEDS: dilTIAZem HCL 60 MG TABLET 120 MG PO (12:45)
[2023-08-22] MEDS: Acetaminophen 325 MG TABLET 650 MG PO ×2 (13:52→20:21)
--- NOTE | 2023-08-22 14:15 | ECG_ITS ---
Test Reason : CHEST PAIN Blood Pressure : / mmHG Vent. Rate : 075 BPM Atrial Rate : 000 BPM P-R Int : 000 ms QRS Dur : 120 ms QT Int : 480 ms P-R-T Axes : 000 -28 133 degrees QTc Int : 536 ms Atrial fibrillation Premature ventricular complexes Left ventricular hypertrophy with QRS widening and repolarization abnormality ( Sokolow-Zaman , [place] product ) Anterior infarct , age undetermined Abnormal ECG When compared with ECG of 18-AUG-2023 14:08, lateral ST depression more prominent Referred By: Kaykay Coto Electronically Signed By:VIOLET CARDOSO
--- NOTE | 2023-08-22 14:32 | PC.NURSE ---
EKG hand delivered to PA by [facility] stat Labs. VSS, no resp distress.
--- NOTE | 2023-08-22 14:46 | MHC.CM.PN ---
per rounds pt not medically ready for dc pt will need amb home spoke with oumar and confirmed that hcp does not need to be invoked for dgter to get a hospitial bed for mother
[2023-08-22] MEDS: oxyCODONE HCl Immed Release 5 MG TABLET 2.5 MG PO ×2 (14:50→22:22)
[2023-08-22] MEDS: 0.9 % Sodium Chloride Flush 3 ML SYRINGE IVFLUSH (15:00)
--- NOTE | 2023-08-22 15:56 | HO.PM.IMPN ---
Subjective Subjective Date of Service: 08/22/23 Interval History: Seen and examined this morning Noted to be more lethargic overnight and remained lethargic this morning. had repeat brain CT done overnight negative for bleed or stroke After dialysis was evaluated again and appeared to be more awake and alert but did report some chest pain which was reproducible on exam Review of Systems Review of Systems: Yes all other systems are reviewed and are negative Constitutional Constitutional: Denies chills and Denies fever(s) ENT Ears, Nose, Mouth, and Throat: Denies dizziness Cardiovascular Cardiovascular: Reports chest pain, Denies palpitations and Denies dyspnea Respiratory Respiratory: Denies cough and Denies dyspnea Gastrointestinal Gastrointestinal: Denies abdominal pain Neurologic Neurologic: Denies dizziness Endocrine Endocrine: Denies palpitations Physical Exam Vital Signs: Vital Signs: Last Vital Signs Temp 98.0 F 08/22/23 15:46 Pulse 53 08/22/23 15:46 Resp 16 08/22/23 15:46 BP 118/64 08/22/23 15:46 Pulse Ox 98 08/22/23 15:46 O2 Del Method Room Air 08/22/23 15:46 BMI result Body Mass Index 19.4 Const: General: cooperative, comfortable, no acute distress, alert and awake Orientation/consciousness: patient oriented x3 Chest: Other: pain with palpation entire chest wall Resp: Effort & Inspection: normal respiratory effort, able to speak in complete sentences, no respiratory distress and no use of accessory muscles Cardio: Rate: regular rate GI: Inspection: No distended Palpation (GI): not soft Skin: Other: bruising left forehead; scalp hematoma x 2 right side Neuro: General: patient oriented x3, No moves all extremities and No CN's II-XI intact bilaterally Objective Data Active Medications Acetaminophen (Acetaminophen 325 Mg Tablet) 650 mg PO Q6H PRN PRN Reason: Pain, Mild (Pain Scale 1-3) Last Admin: 08/22/23 13:52 Dose: 650 mg Documented By: SIMA Apixaban (Apixaban 5 Mg Tablet) 5 mg PO BID [facility] Last Admin: 08/22/23 12:45 Dose: 5 mg Documented By: SIMA Ascorbic Acid (Ascorbic Acid 500 Mg Tablet) 500 mg PO DAILY [facility] Last Admin: 08/22/23 11:47 Dose: Not Given Documented By: SIMA Non-Admin Reason: Off unit: Dialysis Atorvastatin Calcium (Atorvastatin Calcium 80 Mg Tablet) 80 mg PO DAILY [facility] Last Admin: 08/22/23 12:45 Dose: Not Given Documented By: SIMA Non-Admin Reason: Off unit: Dialysis Carvedilol (Carvedilol 25 Mg Tablet) 25 mg PO BID [facility]; Protocol Last Admin: 08/22/23 12:45 Dose: 25 mg Documented By: SIMA Clonazepam (Clonazepam 1 Mg Tablet) 1 mg PO TID [facility] Last Admin: 08/21/23 20:43 Dose: Not Given Documented By: MELIDA Non-Admin Reason: lethargic Cyanocobalamin (Cyanocobalamin (Vitamin B-12) 1,000 Mcg Tablet) 1,000 mcg PO DAILY [facility] Last Admin: 08/22/23 11:48 Dose: Not Given Documented By: SIMA Non-Admin Reason: Off unit: Dialysis Diltiazem HCl (Diltiazem Hcl 60 Mg Tablet) 120 mg PO DAILY [facility]; Protocol Last Admin: 08/22/23 12:45 Dose: 120 mg Documented By: SIMA Ezetimibe (Ezetimibe 10 Mg Tablet) 10 mg PO BEDTIME [facility] Last Admin: 08/21/23 20:32 Dose: 10 mg Documented By: MELIDA Ferrous Sulfate (Ferrous Sulfate 324 Mg Tablet.Dr) 324 mg PO DAILY [facility] Last Admin: 08/22/23 11:49 Dose: Not Given Documented By: SIMA Non-Admin Reason: Off unit: Dialysis Fluoxetine HCl (Fluoxetine Hcl 20 Mg Capsule) 40 mg PO DAILY [facility] Last Admin: 08/22/23 11:49 Dose: Not Given Documented By: SIMA Non-Admin Reason: Off unit: Dialysis Gabapentin (Gabapentin 300 Mg Capsule) 300 mg PO BID [facility] Last Admin: 08/21/23 11:41 Dose: Not Given Documented By: SIMA Non-Admin Reason: PT too lethargic Hydroxyurea (Hydroxyurea 500 Mg Capsule) 500 mg PO DAILY [facility] Last Admin: 08/22/23 12:45 Dose: 500 mg Documented By: SIMA Piperacillin Sod/Tazobactam (Sod 4.5 gm/ Sodium Chloride) 100 mls @ 200 mls/hr IV Q12H [facility] Last Infusion: 08/22/23 06:36 Dose: Infused Documented By: MELIDA Multivitamins/Vitamin C (Multivitamin Tablet) 1 tab PO DAILY [facility] Last Admin: 08/22/23 11:48 Dose: Not Given Documented By: SIMA Non-Admin Reason: Off unit: Dialysis Omeprazole (Omeprazole 20 Mg Capsule.Dr) 20 mg PO DAILY@0630 [facility] Last Admin: 08/22/23 05:25 Dose: 20 mg Documented By: MELIDA Ondansetron HCl (Ondansetron Hcl 4 Mg/2 Ml Vial) 4 mg IVPUSH Q8H PRN PRN Reason: Nausea and Vomiting Last Admin: 08/18/23 21:02 Dose: 4 mg Documented By: DEONTE Oxycodone HCl (Oxycodone Hcl Immed Release 5 Mg Tablet) 2.5 mg PO TID PRN PRN Reason: Pain, Moderate(Pain Scale 4-6) Last Admin: 08/22/23 14:50 Dose: 2.5 mg Documented By: SIMA Senna (Sennosides 8.6 Mg Tablet) 17.2 mg PO BEDTIME PRN PRN Reason: Constipation Sodium Chloride (0.9 % Sodium Chloride Flush 3 Ml Syringe) 3 ml IVFLUSH QSHIFT [facility] Last Admin: 08/22/23 15:00 Dose: 3 ml Documented By: SIMA Topiramate (Topiramate 25 Mg Tablet) 50 mg PO BID [facility] Last Admin: 08/22/23 12:44 Dose: 50 mg Documented By: SIMA Vancomycin HCl (Vancomycin Hcl 125 Mg Capsule) 125 mg PO Q6H [facility] Last Admin: 08/22/23 12:44 Dose: 125 mg Documented By: SIMA Vitamin D (Cholecalciferol (Vitamin D3) 25 Mcg Tablet) 25 mcg PO DAILY [facility] Last Admin: 08/22/23 11:48 Dose: Not Given Documented By: SIMA Non-Admin Reason: Off unit: Dialysis Zolpidem Tartrate (Zolpidem Tartrate 5 Mg Tablet) 5 mg PO BEDTIME [facility] Last Admin: 08/21/23 20:44 Dose: Not Given Documented By: MELIDA Non-Admin Reason: letargic Labs 08/22/23 07:31 08/22/23 07:31 Labs: Laboratory Results - last 24 hr 08/22/23 08/22/23 08/22/23 05:47 07:31 07:34 MCV 112.8 H MCH 37.0 H MCHC 32.8 RDW 15.5 Plt Count 162 MPV 10.3 Immature Gran % (Auto) 0.8 H Neut % (Auto) 75.5 H Lymph % (Auto) 10.7 L [place] % (Auto) 11.0 Eos % (Auto) 1.7 Baso % (Auto) 0.3 Lymph # (Auto) 0.8 L [place] # (Auto) 0.8 Eos # (Auto) 0.1 Baso # (Auto) 0.0 Abs Immat Gran (auto) 0.06 H Absolute Neuts (auto) 5.4 Absolute Nucleated RBC 0.000 Nucleated RBC % (auto) 0.0 VBG pH 7.38 VBG pCO2 34 VBG pO2 53 VBG HCO3 20 L VBG O2 Saturation 86.0 VBG Base Excess -3.6 Anion Gap 16 Estim Creat Clear Calc 8.7 Estimated GFR 9 POC Glucose 83 Random Glucose 93 Calcium 8.0 L Total Bilirubin 0.6 AST 13 ALT 6 Alkaline Phosphatase 70 Ammonia 24 Total Protein 5.8 L Albumin 2.9 L Assessment and Plan (1) C. difficile colitis: Status: Acute Assessment and Plan: 72yo F with HTN, ESRD on HD MWF, aortic stenosis, pAF on apixaban, hx fem/fem bypass, hx PE on apixaban, hx TIA, recent Cdiff 03/13, recent admission to [facility] [place] 05/26-06/19 for MRSA bacteremia presenting with recurrent Cdiff diarrhea with diverticulitis and having missed 1 dose of HD concern for TIA/CVA chest pain ekg similar to previous trop pending reproducible on exam TIA not tPA candidate due to apixaban carotid US -right side with 50-79% stenosis, seen by vascular surgery, does not feel that this is the source of tia or symptoms etc - outpatient follow up with her primary vascular surgeon recommended echo dilation of left atrium and moderate aortic valve stenosis, preserved ejection fraction seen by Neuro -recommended continue anticoagulation with Eliquis MRI negative for acute stroke continue apixaban Toxic metabolic encephalopathy most likely due to multiple sedating medications sedating meds were held and after dialysis today patient is much more awake and alert pt requesting pain meds and meds for anxiety, will resume at 50% doses for oxycodone and klonopin as need rather then scheduled acute diverticultiis without perforation or abscess s/p course of zosyn Cdiff colitis, recurrent white count resolved PO vanco 08/17- ID consult: Favor short course 4-5 day total treatment Zosyn and then po Vancomycin intermediate manager taper. 125 qid 10 d 125 tid Vancomycin one week 125 bid Vancomycin one week 125 daily one week 125 mg every ,,Friday thereafter and dont stop. ESRD on HD MWF - Nephrology following pAF - continue apixaban continue coreg + diltiazem HTN coreg + diltiazem as above hx PE - apixaban as above AAA, 4.9cm diameter - outpt surveillance per Vasc Surg HLD - ezetimibe, atorvastatin mood disorder fluoxetine clonazepam dose decreased as above VTE ppx - apixaban dispo - PT eval- home with family support In my clinical judgment, the patient requires continued inpatient hospitalization for the following reasons: lethargy, chest pain Quality Stroke Does the patient have a stroke diagnosis?: No VTE Prior VTE?: Yes VTE Risk Level:: Medical - moderate - high VTE Device Contraindication: Treatment Not Indicated VTE Drug Contraindication: N/A - Med Ordered
[2023-08-22 16:05] LABS: Troponin-I High Sensitivity 32.6 ng/L (<3.5-17.0)
[2023-08-22 18:55] LABS: Troponin-I High Sensitivity 38.6 ng/L (<3.5-17.0)
[2023-08-22] MEDS: Ezetimibe 10 MG TABLET PO (20:20)
[2023-08-22] MEDS: clonazePAM 0.5 MG TABLET PO (20:21)
[2023-08-22] MEDS: Zolpidem Tartrate 5 MG TABLET PO (20:21)
[2023-08-23] VITALS: BP 140/62; PULSE 71; RESP 16; TEMP 36.3; O2SAT 97
[2023-08-23] MEDS: vancomycin HCL 125 MG CAPSULE PO ×3 (00:22→12:03)
[2023-08-23 04:00] VITALS: BP 142/64; PULSE 65; RESP 17; TEMP 36; O2SAT 99
[2023-08-23] MEDS: Acetaminophen 325 MG TABLET 650 MG PO (04:24)
[2023-08-23] MEDS: Omeprazole 20 MG CAPSULE.DR PO (05:48)
[2023-08-23 07:19] VITALS: BP 125/62; PULSE 56; RESP 14; TEMP 36.7; O2SAT 98
[2023-08-23] MEDS: Multivitamin TABLET 1 TAB PO (08:53)
[2023-08-23] MEDS: FLUoxetine HCl 20 MG CAPSULE 40 MG PO (08:53)
[2023-08-23 08:54] VITALS: BP 125/62
[2023-08-23] MEDS: Ascorbic Acid 500 MG TABLET PO (08:54)
[2023-08-23] MEDS: Ferrous Sulfate 324 MG TABLET.DR PO (08:54)
[2023-08-23] MEDS: carvediloL 25 MG TABLET PO (08:54)
[2023-08-23] MEDS: Cyanocobalamin (Vitamin B-12) 1,000 MCG TABLET 1000 MCG PO (08:54)
[2023-08-23] MEDS: Cholecalciferol (Vitamin D3) 25 MCG TABLET PO (08:54)
[2023-08-23] MEDS: Apixaban 5 MG TABLET PO (08:54)
[2023-08-23] MEDS: Topiramate 25 MG TABLET 50 MG PO (08:54)
[2023-08-23] MEDS: dilTIAZem HCL 60 MG TABLET 120 MG PO (08:54)
[2023-08-23] MEDS: Hydroxyurea 500 MG CAPSULE PO (08:54)
[2023-08-23] MEDS: Atorvastatin Calcium 80 MG TABLET PO (08:54)
[2023-08-23] MEDS: oxyCODONE HCl Immed Release 5 MG TABLET 2.5 MG PO (09:02)
[2023-08-23 09:10] LABS: Anion Gap 15 (12-20); Blood Urea Nitrogen 31 mg/dL (9-16); Calcium 8.7 mg/dL (8.4-10.2); Carbon Dioxide 20 mmol/L (22-29); Chloride 103 mmol/L (96-108); Creatinine Clr Calc Pharmacy 11.2; Estimated Glomerular Filt Rate 12; Glucose Random 86 mg/dL (60-115); Potassium 3.4 mmol/L (3.3-5.1); Sodium 135 mmol/L (135-145)
--- NOTE | 2023-08-23 10:09 | PM.DS ---
DS: Providers Provider Date of Service: 08/23/23 Date of admission: 08/18/23 16:55 Date of discharge: 08/23/23 Primary care physician: Bob Fitzgerald DO, MD Consults: 08/18/23 16:56 Consult to Vascular Surgery Routine Consulting Provider: [facility] Vascular Services Reason for consultation: AAA 08/19/23 08:25 Consult to Infectious Diseases Routine Consulting Provider: [facility] Infectious Disease Reason for consultation: recurr Cdiff + diverticulitis Consult to Nephrology Routine Consulting Provider: [facility] Reason for consultation: missed HD. Cdiff 08/19/23 09:38 Consult to Neurology Routine Consulting Provider: [facility] Reason for consultation: L facial droop, speech difficulties 08/20/23 17:05 Consult to Wound Care Routine Reason for consultation: Stage II on buttock Attending physician on discharge: Rajendra Monroy Discharging clinician: Kaykay Coto DS: Diagnosis Discharge Diagnosis (1) C. difficile colitis: Status: Acute DS: Summary Hospital Course Hospital Course: From H&P on the day of admission 72-year-old female with history of hypertension, ESRD on dialysis MWF, anxiety, aortic stenosis, paroxysmal atrial fibrillation anticoagulated with Eliquis, mesenteric artery bypass graft, PE on Eliquis, history of TIA and recent history of C diff 02/2023 with admission to [facility] from 05/26-06/19 for metabolic encephalopathy found to have MRSA bacteremia treated with rifampin which was completed on 07/06 presented to the ED earlier today for evaluation of copious diarrhea ongoing for 3 days. She states that she has been incontinent of very foul smelling diarrhea with associated abdominal pain and nausea. No fevers or chills. No vomiting, melena, hematochezia, urinary symptoms, shortness of breath, lightheadedness, chest pain. She states she was feeling so unwell she missed dialysis this morning. Follows with Dr. Duffy in Nephrology. On arrival, vital signs stable. There is a mild leukocytosis of 11.8. Stable macrocytic anemia with H/H 11.7/36.2%. Renal function 5.52, BUN 70, baseline creatinine around 3.5. Electrolyte levels normal except for CO2 21. GI panel pending but is positive for C diff gene and toxin . CT abdomen/pelvis shows diverticulitis, 4.9 cm abdominal aortic aneurysm among other nonacute findings. In the ED, has been given IV NS. Hospital course by problem: Patient was initially presented to the hospital due to diarrhea and was found to have acute uncomplicated diverticulitis and C diff colitis which was recurrent. She was treated with a 5 day course of IV Zosyn and started on oral vancomycin. She was seen by infectious diseases who recommended a prolonged vancomycin taper as follows: 125 qid 10 d 125 tid Vancomycin one week 125 bid Vancomycin one week 125 daily one week 125 mg every ,,Friday thereafter and dont stop. Consider outpatient colonoscopy Fever and leukocytosis resolved. Diarrhea improved. 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 MRI confirmed no acute changes. She was not tPA candidate due to chronic anticoagulation with apixaban. She had carotid US which showed right side with 50-79% stenosis and occlusion of the left internal carotid artery. She was seen by vascular surgery who does not feel that this is the source of tia or symptoms as the velocity was on the lower side. Outpatient follow up with her primary vascular surgeon is recommended. echo showed dilation of left atrium and moderate aortic valve stenosis, preserved ejection fraction. She was seen by Neurology who recommended to continue anticoagulation with Eliquis. Outpatient follow up for aortic stenosis recommended. Toxic metabolic encephalopathy most likely due to multiple sedating medications. sedating meds including gabapentin, Klonopin, oxycodone were held and after dialysis today patient is much more awake and alert with no confusion. Patient and family requesting pain meds and meds for anxiety, will resume at 50% doses for oxycodone and klonopin as need rather then scheduled. can follow up with PCP as an outpatient. ESRD on HD MWF Nephrology following and she underwent dialysis on her normal schedule. Outpatient follow-up as scheduled pAF, HTN, h/o PE, HLD Continued on all baseline medications. No adjustments. AAA, 4.9cm diameter Seen by vascular surgery. recommend outpt surveillance with her primary vascular surgeon mood disorder fluoxetine. clonazepam dose decreased as above Seen by physical therapist recommendations for home physical therapy and will resume services with [facility]. Her son and daughter will be staying with her to assist in her care. Time Attestation Discharge Coordination Time (in mins): 36 Quality: Safe Use of Opioids Does Pt have an Active Cancer Diagnosis on the Problem List?: No Quality: Stroke Does the patient have a stroke diagnosis?: No Physical Exam Vital Signs: Vital Signs: Last Vital Signs Temp 98.1 F 08/23/23 07:19 Pulse 56 08/23/23 07:19 Resp 14 08/23/23 07:19 BP 125/62 08/23/23 08:54 Pulse Ox 98 08/23/23 07:19 O2 Del Method Room Air 08/23/23 07:19 BMI result Body Mass Index 19.4 Const: General: cooperative, comfortable, no acute distress, alert and awake Nutritional Appearance: thin Orientation/consciousness: patient oriented x3 Resp: Effort & Inspection: normal respiratory effort, able to speak in complete sentences, no respiratory distress and no use of accessory muscles Cardio: Rate: regular rate GI: Inspection: No distended Palpation (GI): not soft Skin: Other: bruising left forehead; scalp hematoma x 2 right side Neuro: Other: limited movement legs (chronic) able to move both upper extremities General: patient oriented x3 and No CN's II-XI intact bilaterally DS: Data Data Completed and Pending Labs on day of discharge: Laboratory Results - last 24 hr 08/22/23 08/22/23 08/23/23 15:13 18:21 08:23 Hold Purple Top SEE NOTE Sodium 135 Potassium 3.4 D Chloride 103 Carbon Dioxide 20 L Anion Gap 15 BUN 31 H Creatinine 3.60 H Estim Creat Clear Calc 11.2 Estimated GFR 12 Random Glucose 86 Calcium 8.7 D Troponin I High Sens 32.6 H 38.6 H Preliminary micro results at discharge 08/18/23 19:36 Blood Culture - Preliminary Blood - Venous No growth after 48 hours. 08/18/23 19:36 Blood Culture - Preliminary Blood - Venous No growth after 48 hours. Imaging echo: Radiologist's impression: ITS Impressions Abdomen/Pelvis CT 08/18/23 15:09 IMPRESSION: 1. Diverticulitis of the sigmoid colon. 2. 4.9 cm abdominal aortic aneurysm. Based on published guidelines in J Am Parth Radiol 2013; 10(10):789-794 and J Vasc Surg. 2018; 67:2-77, the recommendation for an abdominal aortic aneurysm with diameter 4.5-5.4 cm is vascular consultation and subsequent follow-up every 6 months. 3. Status post cholecystectomy. 4. Surgical mesh anterior abdominal wall. No recurrent hernia. 5. Atrophic kidneys. Bilateral renal cysts. No follow-up imaging is recommended for simple renal cyst. 6. Splenomegaly. Fleischner guidelines were followed. 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 No evidence for an acute hemorrhage or stroke at this time. Results to be telephoned into the ER. Carotid Doppler Study 08/19/23 17:34 IMPRESSION: 1. RIGHT: Moderate, hemodynamically significant stenosis of the proximal right internal carotid artery corresponding to a 50-79% stenosis by velocity criteria. 2. LEFT: The cervical internal carotid artery appears occluded. The vertebral artery is is not visualized and could be occluded. Chest X-Ray 08/21/23 12:10 IMPRESSION: 1. Cardiomegaly. 2. Status post median sternotomy with valve replacement. 3. Left basilar atelectasis, less compressed likely pneumonia. Brain MRI 08/21/23 15:25 IMPRESSION: - There are no acute intracranial findings. No acute infarcts. - Absent left internal carotid artery flow void in keeping with the left internal carotid artery occlusion discussed on the 08/19/2023 carotid ultrasound. - Chronic encephalomalacia and gliosis within the posterior aspect of the right cerebral hemisphere. There is background chronic microangiopathy. - Probable high right parietal scalp hematoma that can be clinically correlated. Head CT 08/22/23 06:18 IMPRESSION: No acute intracranial pathology. 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 ECHO: Conclusions: - The left ventricular systolic function is normal. The calculated ejection fraction is 61% by biplane method. - The left atrium is severely dilated. - There is moderate aortic valve stenosis. Discharge Plan Discharge Anticipated Discharge Date/Time: 08/23/23 11:00 Patient Disposition: Home Health Service Discharge Diagnosis: Diverticulitis Recurrent C diff TIA Carotid stenosis Toxic metabolic encephalopathy Referrals: [facility] [Other] - 1 Week Bob Fitzgerald DO, MD [Primary Care Provider] - 1 Week Discharge Medications: New vancomycin 125 mg Capsule 125 mg PO Q6H Qty: 82 0RF Rx Instructions: take q6h for 4 more days, then TID for 7 days, BID for 7 days, daily for 7 days, then [facility] indefinitely after that Continued fluoxetine 40 mg capsule 40 mg PO DAILY hydroxyurea 500 mg capsule 500 mg PO DAILY carvedilol 25 mg tablet 25 mg PO BID diltiazem HCl 120 mg tablet 120 mg PO DAILY furosemide 80 mg tablet 80 mg PO DAILY pantoprazole 40 mg tablet,delayed release (DR/EC) 40 mg PO DAILY zolpidem 5 mg tablet 5 mg PO BEDTIME ezetimibe 10 mg tablet 10 mg PO BEDTIME rosuvastatin 20 mg tablet 20 mg PO DAILY topiramate 50 mg tablet 50 mg PO BID Eliquis 5 mg tablet 5 mg PO BID multivitamin Tablet 1 tab PO DAILY cyanocobalamin (vitamin B-12) 1,000 mcg Tablet 1,000 mcg PO DAILY ascorbic acid (vitamin C) 500 mg Tablet 500 mg PO DAILY ferrous sulfate 325 mg (65 mg iron) Tablet,Delayed Release (Dr/Ec) 325 mg PO DAILY cholecalciferol (vitamin D3) 25 mcg (1,000 unit) Tablet 25 mcg PO DAILY Changed clonazepam 1 mg tablet 0.5 mg PO TID PRN (Reason: anxiety) Qty: 1 0RF gabapentin 100 mg capsule 200 mg PO BID Qty: 1 0RF oxycodone 5 mg tablet 2.5 mg PO TID PRN (Reason: Pain (Scale Score 4-6)) Qty: 1 0RF Discharge Orders: Discharge Order (Routine); Ordered 08/23/23 Ordered By: Kaykay Coto Activity on Discharge: As tolerated Stand Alone Forms: Patient Portal Discharge page Print Language: Luxembourgish Care Plan Goals: see below Health Concerns: Acute diverticulitis-complete a course of antibiotics Recurrent C diff infection Toxic metabolic encephalopathy/sedation ESRD on hemodialysis Carotid stenosis TIA moderate aortic stenosis Plan of Treatment: You have completed antibiotics for diverticulitis during your hospitalization For recurrent C diff colitis-recommend slow taper. q6h for 4 more days, then 3 times per day for 7 days, 2 times daily for 7 days, once daily for 7 days then Friday indefinitely. Consider outpatient colonoscopy. Call to schedule a follow-up appointment with your primary vascular surgeon for monitoring of bilateral carotid stenosis and abdominal aortic aneurysm Call to schedule a follow-up appointment with your PCP Continue dialysis per your current schedule Due to encephalopathy/excessive sedation during hospitalization recommend to decrease dose of oxycodone to 2.5 mg 3 times daily as needed; decrease dose of clonazepam to 0.5 mg 3 times a day as needed and decrease dose of gabapentin to 200 mg twice daily. further titration of medications may be necessary. you will be discharged home with resume [facility] services and to start home PT recommend outpatient follow up with cardiology for aortic stenosis Assessment: see discharge summary
--- NOTE | 2023-08-23 10:47 | MHC.CM.PN ---
Per PA patient is medically cleared for dc home w/ family support and resumption of [facility] services. [facility] and Jeff NAYELI made aware of dc. CM spoke with daughter/HCP Laney who is comfortable w/ this plan and will continue to provide care at home. BLS transportation scheduled for 12pm. RN and PA aware. IMM delivered.
--- NOTE | 2023-08-23 10:57 | P.F2F_ITS ---
Service Date Service Date: 08/23/23 Encounter Date of encounter: 08/23/23 Reasons for Services Signs and symptoms assessed: needs PT for gross deconditioning, impaired mobility, transfer ability, standing balance, trunk control, muscle weakness, postural asymmetry Reason for physical therapy: home safety and mobility and therapeutic exercises Overseeing Care: Bob Fitzgerald Homebound: Leaving the home is medically contraindicated at this time without the asist of a device and/or another person due th the listed conditions above and below. Reason homebound: bedbound/chairbound Certification: Based on the above findings, I certify that this patient is confined to the home and needs intermittent group home care, physical therapy and/or speech therapy, or continues to need occupational therapy. The patient is under my care, and I have initiated the establishment of the plan of care. The patient will be followed by a physician who will periodically review the plan of care. Time Spent With Patient Time: Total time managing care of this patient today ____ minutes.
[2023-08-23 11:54] VITALS: BP 142/65; PULSE 70; RESP 14; TEMP 36.4; O2SAT 100
== END 2023-08-23 13:33 | disposition home health service (06) | DRG 371 ==
LOC: HO.ED 16:06 → HO.EDOVER 20:51 → HO.S3 08-19 19:57
PROVIDERS: Family Medicine; Internal Medicine; Admitting Provider Physician Assistant; Emergency Provider Emergency Medicine; PCP Internal Medicine; Visit Provider Physician Assistant Medical
DX: A04.71 Enterocolitis due to Clostridium difficile, recurrent (principal); G92.8 Other toxic encephalopathy; N18.6 End stage renal disease; I12.0 Hypertensive chronic kidney disease with stage 5 chronic kidney disease or end stage renal disease; K57.32 Diverticulitis of large intestine without perforation or abscess without bleeding; G45.9 Transient cerebral ischemic attack, unspecified; I71.40 Abdominal aortic aneurysm, without rupture, unspecified; I65.21 Occlusion and stenosis of right carotid artery; R29.810 Facial weakness; D63.1 Anemia in chronic kidney disease; E78.5 Hyperlipidemia, unspecified; I48.0 Paroxysmal atrial fibrillation; F39 Unspecified mood [affective] disorder; I35.0 Nonrheumatic aortic (valve) stenosis; Z99.2 Dependence on renal dialysis; Z91.158 Patient's noncompliance with renal dialysis for other reason; Z86.711 Personal history of pulmonary embolism; Z87.891 Personal history of nicotine dependence; Z79.01 Long term (current) use of anticoagulants; Z79.899 Other long term (current) drug therapy
CPT/HCPCS: 36415; 70450; 70551; 71045; 74176; 80048; 80053; 80061; 82140; 82803; 82947; 84484; 85025; 85027; 86140; 87040; 87324; 87493; 87507; 90999; 92507; 92523; 93005; 93306; 93880; 97110; 97163; 97167; 99285; J2405; J2543; P9047; Q9957

== ENCOUNTER → 2023-08-18 13:46 | Outpatient (BNV) | payer MEDICARE, SELFPAY | PROVIDERS: Emergency Provider Emergency Medicine; PCP Internal Medicine; Visit Provider Internal Medicine | DX: I48.91 Unspecified atrial fibrillation (principal) | CPT/HCPCS: 93010 ==

== ENCOUNTER 2023-08-18 16:55 | Outpatient (BNV) | payer MEDICARE, SELFPAY | END 2023-08-22 14:15 | PROVIDERS: Admitting Provider Physician Assistant; Emergency Provider Emergency Medicine; PCP Internal Medicine; Visit Provider Internal Medicine | DX: I48.91 Unspecified atrial fibrillation (principal); I49.3 Ventricular premature depolarization | CPT/HCPCS: 93010 ==

== ENCOUNTER 2023-08-18 16:55 | Outpatient (BNV) | payer MEDICARE, SELFPAY | END 2023-08-20 07:00 | PROVIDERS: Admitting Provider Physician Assistant; Emergency Provider Emergency Medicine; PCP Internal Medicine; Visit Provider Internal Medicine | DX: I35.2 Nonrheumatic aortic (valve) stenosis with insufficiency (principal); I35.8 Other nonrheumatic aortic valve disorders | CPT/HCPCS: 93306 ==

== ENCOUNTER → 2023-08-18 16:55 | Outpatient (BNV) | payer MEDICARE, SELFPAY | PROVIDERS: Admitting Provider Physician Assistant; Emergency Provider Emergency Medicine; PCP Internal Medicine; Visit Provider Internal Medicine | DX: K57.92 Diverticulitis of intestine, part unspecified, without perforation or abscess without bleeding (principal); A04.72 Enterocolitis due to Clostridium difficile, not specified as recurrent | CPT/HCPCS: 99222 ==

== ENCOUNTER → 2023-08-18 16:55 | Outpatient (BNV) | payer MEDICARE, SELFPAY | PROVIDERS: Admitting Provider Physician Assistant; Emergency Provider Emergency Medicine; PCP Internal Medicine; Visit Provider Family Medicine | DX: A04.71 Enterocolitis due to Clostridium difficile, recurrent (principal) | CPT/HCPCS: 99223; 99232; 99233; 99239; G0180 ==

== ENCOUNTER → 2023-08-18 16:55 | Outpatient (BNV) | payer MEDICARE, SELFPAY | PROVIDERS: Admitting Provider Physician Assistant; Emergency Provider Emergency Medicine; PCP Internal Medicine; Visit Provider Surgery Vascular Surgery | DX: I65.21 Occlusion and stenosis of right carotid artery (principal); I69.392 Facial weakness following cerebral infarction | CPT/HCPCS: 99222; 99232 ==

== ENCOUNTER → 2023-08-18 16:55 | Outpatient (BNV) | payer MEDICARE, SELFPAY | PROVIDERS: Admitting Provider Physician Assistant; Emergency Provider Emergency Medicine; PCP Internal Medicine; Visit Provider Psychiatry & Neurology Neurology | DX: I71.40 Abdominal aortic aneurysm, without rupture, unspecified (principal); K57.92 Diverticulitis of intestine, part unspecified, without perforation or abscess without bleeding; A04.71 Enterocolitis due to Clostridium difficile, recurrent | CPT/HCPCS: 99222 ==